=== PATIENT | female | born 1970 | race Caucasian/White ===

== ENCOUNTER 2020-07-12 20:34 | Emergency (ER) | payer OTHER, SELFPAY ==
--- NOTE | ~2020-07-12 | XR_ITS ---
XR ribs RT 2V DATE: 07/12/2020 21:18 INDICATION: Injury with the right rib pain under the breast area TECHNIQUE: 3 views of right ribs COMPARISON: None FINDINGS: No right rib fracture is evident. The right lung is clear. No pleural effusion or pneumotho rax. IMPRESSION: Negative Reviewed, dictated and finalized at location A. IMPRESSION: Negative
--- NOTE | 2020-07-12 20:40 | ED_ITS ---
HPI - Abdominal Pain General Chief Complaint: Abdominal Pain Stated Complaint: abd pain R side Time Seen by Provider: 07/12/20 20:40 Source: patient and RN notes reviewed Mode of arrival: ambulatory Limitations: no limitations Related Data Allergies Allergy/AdvReac Type Severity Reaction Status Date / Time NKDA Allergy Mild Uncoded 10/19/04 06:45 [facility], [facility] Family History Family History (Updated 07/09/14 @ 07:13 by DOCTOR UNKNOWN) Mother Hypertension Other Asthma Cerebrovascular accident Family history of elevated blood lipids Social History Social History Smoking status: Never smoker Alcohol intake: never
[2020-07-12 20:50] VITALS: BP 166/82; PULSE 87; RESP 20; TEMP 36.9; O2SAT 100
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
[2020-07-12 22:00] VITALS: BP 138/66
== END 2020-07-12 22:05 | disposition home or self-care (01) ==
PROVIDERS: Emergency Provider Emergency Medicine; PCP Physician Assistant
DX: S20.211A Contusion of right front wall of thorax, initial encounter (principal); W22.8XXA Striking against or struck by other objects, initial encounter
CPT/HCPCS: 71100; 99283

== ENCOUNTER 2021-12-12 23:12 | Emergency (ER) | payer OTHER, SELFPAY ==
--- NOTE | ~2021-12-12 | XR_ITS ---
EXAMINATION: XR chest 1V portable EXAM DATE: 12/12/2021 23:54 INDICATION: shortness of breath,COUGH,?FEVER,PUI COVID19 TECHNIQUE: Portable AP frontal chest x-ray was obtained. Comparison is made to prior examination from 07/12/2020. FINDINGS: Scattered predominantly linear bilateral opacities. Atelectasis an/or pneumonia. There is n o pneumothorax suspected. There are no pleural effusions. Cardiomediastinal silhouette is normal. IMPRESSION: Scattered bilateral perihilar opacities, atelectasis and/or pneumonia. Reviewed, dictated and finalized at location G. UTER SYSTEMS SECURITY ANALYST IMPRESSION: Scattered bilateral perihilar opacities, atelectasis and/or pneumo sherlyn.
[2021-12-12 23:28] VITALS: BP 119/91; PULSE 104; RESP 21; TEMP 37.5; O2SAT 95
[2021-12-12] MEDS: ACETAMINOPHEN 500 MG TABLET 1000 MG PO (23:55)
[2021-12-12] MEDS: SODIUM CHLORIDE 0.9% IV 1,000 ML 999 ML IV CONT (23:56)
[2021-12-13 00:06] LABS: Base Excess ABG 3.4 mmol/L (0-2); HCO3 ABG 23.9 mmol/L (23-29); Oxygen Content ABG 18.7 %vol (16.0-22.0); Oxyhemoglobin 94.5 % (94-100); PCO2 ABG 25.8 mmHg (35-45); PO2 ABG 63.6 mmHg (80-90); Total Hemoglobin 14.1 g/dL (12.0-18.0); pH ABG 7.59 (7.35-7.45)
[2021-12-13 00:32] LABS: Hematocrit 42.7 % (35.0-49.0); Hemoglobin 14.2 g/dL (12.0-15.0); Mean Corpuscular HGB Conc 33.3 g/dL (32.0-36.0); Mean Corpuscular Hemoglobin 30.9 pg (27.0-31.0); Mean Corpuscular Volume 92.8 fL (78.0-102.0); Mean Platelet Volume 10.2 fl (9.2-11.8); Platelet Count Result 188 K/mm3 (150-420); Red Cell Distribution Width 13.2 % (11.6-14.4); White Blood Count 2.7 K/mm3 (4.8-10.8)
--- NOTE | 2021-12-13 00:34 | ED.SOB ---
HPI - SOB/Dyspnea General Chief Complaint: Shortness of Breath/Dyspnea Stated Complaint: Rule out COVID Time Seen by Provider: 12/13/21 00:35 Source: patient Mode of arrival: ambulatory Limitations: no limitations History of Present Illness HPI Narrative: this is a 51-year-old female that presents with with congestion with low-grade fever with no nausea or vomiting no chest pain no diarrhea constipation, patient is vaccinated for COVID with some mild shortness of breath and vitals are stable with O2 sats 95% on room air. MD elicited complaint: cough Related Data Home Medications Medication Instructions Recorded Confirmed azathioprine 50 mg PO TID 07/12/20 12/12/21 fluoxetine 20 mg PO DAILY 07/12/20 12/12/21 folic acid 1 mg PO DAILY 07/12/20 12/12/21 levothyroxine 50 mcg PO DAILY 07/12/20 12/12/21 mesalamine [Pentasa] 1,000 mg PO QID 07/12/20 12/12/21 amlodipine 5 mg PO DAILY 12/12/21 12/12/21 ezetimibe 10 mg PO DAILY 12/12/21 12/12/21 Allergies Allergy/AdvReac Type Severity Reaction Status Date / Time No Known Allergies Allergy Verified 12/12/21 23:23 Review of Systems Review of Systems: All systems reviewed & are unremarkable except as noted in HPI and below PMFSH Past Medical History Medical History Obesity Ulcerative colitis Surgical History Surgical History Delivery by section x2 Family History Family History Mother Hypertension Other Asthma Cerebrovascular accident Family history of elevated blood lipids Social History Social History Smoking status: Former smoker Alcohol intake: never Substance use: never Exam Const: General: healthy appearing, no acute distress and alert Orientation/consciousness: patient oriented x3 HENMT: Head: normal to inspection Eyes: Conjunctivae: conjunctivae normal Pupils: Equal, round and reactive pupils present Neck: Neck: normal visual inspection, no lymphadenopathy and no meningeal signs Chest: Chest palpation & inspection: normal inspection of the chest Resp: Effort & Inspection: normal respiratory effort Auscultation: clear to auscultation bilaterally Cardio: Rate: regular rate Rhythm: regular rhythm GI: GI Palp: Yes Soft to palpation Percussion: Yes normal to percussion : General: Yes no CVA tenderness Urinary Catheter: Urinary Catheter: patent and draining Back/Spine/Pelvis: Back: no CVA tenderness Skin: General skin exam: normal color Rashes: no rashes Neuro: General: patient oriented x3 and moves all extremities Extrem: General: normal to inspection and no pedal edema Psych: Mental Status: mental status grossly normal Course Course Emergency Course: Labs and x-rays reviewed with patient advised to drink plenty of fluids and, the patient was given IV fluids Tylenol for low-grade fever w Vital Signs Vital signs: Vital Signs Temperature 37.5 C 12/12/21 23:28 Pulse Rate 104 H 12/12/21 23:28 Respiratory Rate 21 H 12/12/21 23:28 Blood Pressure 119/91 H 12/12/21 23:28 Pulse Oximetry 95 12/12/21 23:28 Temperature 37.5 C 12/12/21 23:28 Pulse Rate 104 H 12/12/21 23:28 Respiratory Rate 21 H 12/12/21 23:28 Blood Pressure 119/91 H 12/12/21 23:28 Pulse Oximetry 95 12/12/21 23:28 MDM - SOB/Dyspnea Lab Data Result diagrams: 12/13/21 00:04 12/13/21 00:04 Labs: Lab Results 12/12/21 12/13/21 12/13/21 Range/Units 01:12 00:04 00:04 WBC 2.7 L (4.8-10.8) K/mm3 RBC 4.60 (4.20-5.40) M/mm3 Hgb 14.2 (12.0-15.0) g/dL Hct 42.7 (35.0-49.0) % MCV 92.8 (78.0-102.0) fL MCH 30.9 (27.0-31.0) pg MCHC 33.3 (32.0-36.0) g/dL RDW 13.2 (11.6-14.4) % Plt Count 188 (150-420) K/mm3 MPV 10.2 (9.2
[2021-12-13 01:04] LABS: Device ROOM AIR; Modified Allen's Test Pass; Site Drawn LEFT RADIAL
[2021-12-13 01:07] LABS: Band Neutrophils Percent 0 % (0-6); Basophils Percent Manual 0 % (0-1); Eosinophils Percent Manual 0 % (1-6); Lymphocytes Absolute Manual 0.78 K/mm3 (1.1-4.5); Lymphocytes Percent Manual 29 % (18-44); Monocytes Absolute Manual 0.29 K/mm3 (0.1-0.90); Monocytes Percent Manual 11 % (3-9); Neutrophils Absolute Manual 1.62 K/mm3 (1.7-7.2); Neutrophils Percent Manual 60 % (46-73); Platelet Estimate Adequate (Adequate)
[2021-12-13 01:08] LABS: Influenza A QL RT-PCR Negative (Negative); Influenza B QL RT-PCR Negative (Negative); SARS-CoV-2 RNA PCR Positive (Negative)
[2021-12-13 01:15] LABS: Alanine Aminotransferase 65 U/L (14-59); Albumin Level 3.5 g/dL (3.4-5.0); Alkaline Phosphatase 83 U/L (46-116); Anion Gap 11 mmol/L (8-16); Aspartate Amino Transferase 67 U/L (15-37); Bilirubin,Total 0.4 mg/dL (0.00-1.00); Blood Urea Nitrogen 16 mg/dL (7-18); Calcium 8.6 mg/dL (8.5-10.1); Carbon Dioxide 28 mmol/L (21-32); Chloride 101 mmol/L (98-108); Estimated CRCL calculation 64 ml/min; Estimated Glomerular Filt Rate 58; Glucose 101 mg/dL (70-99); Osmolality Calculated 291 mOsm/kg (285-295); Potassium 3.1 mmol/L (3.5-5.1); Sodium 140 mmol/L (136-145); Total Protein 7.7 g/dL (6.4-8.2)
[2021-12-13 01:21] LABS: Add Urine Microscopic? YES; Appearance Urine Clear (Clear); Bilirubin Urine Negative (Negative); Blood Urine Negative (Negative); Color Urine Yellow (Yellow); Glucose Urine UA Negative (Negative); Ketones Urine Trace (Negative); Leukocyte Esterase Ur Negative (Negative); Nitrate Urine Negative (Negative); Protein Urine 1+ (Negative); Specific Grav Ur 1.025 (1.010-1.020); Urobilinogen Urine 0.2 mg/dL (0.2-1.0)
[2021-12-13 01:30] LABS: Bacteria Urine Trace /hpf; RBC Urine 0-2 /hpf (0-2); Squamous Epithelial Cell Urine Few /hpf (Few); WBC Urine 0-3 /hpf (0-3)
[2021-12-13 02:01] VITALS: BP 120/73; PULSE 91; RESP 18; TEMP 36.9; O2SAT 97
== END 2021-12-13 02:03 | disposition home or self-care (01) ==
PROVIDERS: Emergency Provider Emergency Medicine; PCP Physician Assistant
DX: U07.1 COVID-19 (principal)
CPT/HCPCS: 36415; 36600; 71045; 80053; 81001; 82805; 85025; 87502; 96360; 96361; 99283; C9803; J7030; U0003; U0005

== ENCOUNTER 2022-09-07 19:23 | Emergency (ER) | payer OTHER, SELFPAY ==
--- NOTE | 2022-09-07 19:27 | ED.URI ---
HPI - URI/Sore Throat General Chief Complaint: Upper Respiratory Infection Stated Complaint: chest congestion Time Seen by Provider: 09/07/22 19:27 Source: patient and RN notes reviewed History of Present Illness HPI Narrative: patient is a 52-year-old female who presents to urgent care with complaints of chest congestion, cough and postnasal drainage. Patient states that she gets this every year and normally starts out with runny nose and sore throat. Patient states that she has tested herself twice at home for COVID and both test has been negative. Patient denies any fever, nausea, vomiting, shortness of breath. States that she has been using Mucinex and Tussin DM for her cough. No other acute complaints. No acute distress noted. Patient aware of the plan of care. Some parts of this dictation were generated by voice recognition software and may contain typographical and/or grammatical inaccuracies. Related Data Allergies Allergy/AdvReac Type Severity Reaction Status Date / Time No Known Allergies Allergy Verified 12/12/21 23:23 Review of Systems Review of Systems: CONSTITUTIONAL: Denies fever, chills, or sweats. EYES: Denies visual changes, redness, or discharge. ENT: reported nasal congestion rhinorrhea CARDIOVASCULAR: Denies chest pain, palpitations, or edema. RESPIRATORY: Reports cough without dyspnea reports of cough without wheezing or difficulty breathing GASTROINTESTINAL: Denies abdominal pain, nausea, vomiting, or diarrhea. GENITOURINARY: Denies dysuria or hematuria. SKIN: Denies rash or itching. MUSCULOSKELETAL: Denies back pain, joint pain, or myalgia. NEUROLOGIC: Denies headache, numbness, or weakness. All other systems reviewed are negative, except as documented in HPI. [facility] Past Medical History Medical History Obesity Ulcerative colitis Surgical History Surgical History Delivery by section x2 Family History Family History Mother Hypertension Other Asthma Cerebrovascular accident Family history of elevated blood lipids Social History Social History Smoking status: Former smoker Alcohol intake: never Substance use: never Comments At the time of my signature, I reviewed and agree with the nursing past medical, surgical, social, and family history. There is no relevant family history pertinent to the patient complaint. Exam Narrative: GENERAL: This is a well-nourished, well-developed patient, in no apparent distress. HEAD: normocephalic, atraumatic. EYES: PERRL. Sclera clear/white. Vision is grossly intact. EARS: External ears normal, auditory canals clear and without drainage, TMs normal without perforation. Hearing grossly intact. NOSE: External nose normal with no obvious nasal discharge, nares without redness, no rhinorrhea. THROAT: Mucous membranes moist, posterior pharynx clear. moderate postnasal drainage NECK: Neck supple, non-tender without lymphadenopathy CARDIOVASCULAR: Regular rate and rhythm without murmurs, gallops, or rubs. RESPIRATORY: Clear to auscultation. Breath sounds equal bilaterally. No wheezes, rales, or rhonchi. SKIN: warm, intact with no suspicious lesions or rash, good texture and turgor. NEURO: awake, alert, and oriented to person, place and time. There were no obvious focal neurologic abnormalities. EXTREMITIES: No clubbing, cyanosis, or edema. Course Course Level of Care: Express Care Visit Vital Signs Vital signs: Vital Signs Temperature 99.2 F 09/07/22 19:28 Pulse Rate 86 09/07/22 19:28 Respiratory Rate 20 09/07/22 19:28 Blood Pressure 174/91 H 09/07/22 19:28 Pulse Oximetry 100 09/07/22 19:28 Oxygen Delivery Room Air 09/07/22 19:28 Temperature 99.2 F 09/07/22 19:28 Pulse Rate
[2022-09-07 19:28] VITALS: BP 174/91; PULSE 86; RESP 20; TEMP 37.3; O2SAT 100
== END 2022-09-07 19:46 | disposition home or self-care (01) ==
PROVIDERS: Emergency Provider Nurse Practitioner Family; PCP Physician Assistant
DX: R05.1 Acute cough (principal); Z87.891 Personal history of nicotine dependence; E66.9 Obesity, unspecified; Z68.35 Body mass index [BMI] 35.0-35.9, adult
CPT/HCPCS: 99213; G0463

== ENCOUNTER 2023-02-02 18:10 | Emergency (ER) | payer OTHER, SELFPAY ==
[2023-02-02 18:10] VITALS: BP 192/90; PULSE 98; RESP 20; TEMP 38.8; O2SAT 97
[2023-02-02] MEDS: ACETAMINOPHEN 500 MG TABLET 1000 MG PO (18:29)
--- NOTE | 2023-02-02 18:30 | ED.URI ---
HPI - URI/Sore Throat General Chief Complaint: Upper Respiratory Infection Stated Complaint: sore throat/fever Time Seen by Provider: 02/02/23 18:16 History of Present Illness HPI Narrative: This is a 52-year-old female with reported history of ulcerative colitis, who presents the emergency department complaining of myalgias upper respiratory congestion and fever for the past day. She states she had an exposure to one person with similar symptoms approximately 2 days ago. She states the myalgias are rated 3/10 and do not radiate. Related Data Home Medications Medication Instructions Recorded Confirmed No Home Medications 02/02/23 02/02/23 Allergies Allergy/AdvReac Type Severity Reaction Status Date / Time No Known Allergies Allergy Verified 12/12/21 23:23 Review of Systems Review of Systems: CONSTITUTIONAL: Fevers and chills denies sweats ENT: Rhinorrhea, congestion, sore throat denies otalgia. CARDIOVASCULAR: Denies chest pain, palpitations, or edema. RESPIRATORY: Denies cough or dyspnea. GASTROINTESTINAL: Denies abdominal pain, nausea, vomiting, or diarrhea. GENITOURINARY: Denies dysuria or hematuria. SKIN: Denies rash or itching. MUSCULOSKELETAL: Denies back pain, joint pain, or myalgia. NEUROLOGIC: Denies headache, numbness, dizziness, or weakness. PSYCHIATRIC: Denies anxiety or depression. PMFSH Past Medical History Medical History Obesity Ulcerative colitis Surgical History Surgical History Delivery by section x2 Family History Family History Mother Hypertension Other Asthma Cerebrovascular accident Family history of elevated blood lipids Social History Social History Smoking status: Former smoker Alcohol intake: never Substance use: never Exam Narrative: GENERAL: Well-developed, well-nourished, and in no acute distress. HEAD: Normocephalic, atraumatic. EYES: PERRLA and EOMI. ENT: Nares clear, no rhinorrhea or epistaxis. Mucous membranes moist. Oropharynx with left tonsillar erythema and hypertrophy without exudate or other lesions. Bilateral TMs bulging slightly with opaque fluid. No noted erythema NECK: Supple. Tender, left anterior lymphadenopathy. No noted right lymphadenopathy or masses. No carotid bruits or JVD CHEST: Clear to auscultation. No respiratory distress. No wheezes rales or rhonchi HEART: Regular rate and rhythm. No murmur heard. Normal peripheral pulses. ABDOMEN: Soft, nontender, nondistended, normal active bowel sounds. EXTREMITIES: Normal range of motion. No edema. SKIN: Erythematous, slightly tender and indurated lesion noted in the right inframammary fold. Skin otherwise warm, dry, no rash. NEURO: No focal deficits. Alert and oriented x3. PSYCH: Normal mood and affect. Course Course Emergency Course: 18:30 - Exam is consistent with upper respiratory tract infection. Will test for COVID, influenza and strep. 19:15 - Patient tested positive for Strep. Will treat with penicillin and discharge. Discussed return and emergent precautions including signs/symptoms of respiratory distress. The patient voiced understanding and is comfortable with the plan. All questions answered to her satisfaction. Vital Signs Vital signs: Vital Signs Temperature 101.8 F H 02/02/23 18:10 Pulse Rate 98 02/02/23 18:10 Respiratory Rate 20 02/02/23 18:10 Blood Pressure 192/90 H 02/02/23 18:10 Pulse Oximetry 97 02/02/23 18:10 Oxygen Delivery Room Air 02/02/23 18:10 Temperature 101.8 F H 02/02/23 18:10 Pulse Rate 98 02/02/23 18:10 Respiratory Rate 20 02/02/23 18:10 Blood Pressure 192/90 H 02/02/23 18:10 Pulse Oximetry 97 02/02/23 18:10 Oxygen Delivery Room Air 02/02/23 18:10 MDM - URI/Sore Thr
[2023-02-02 19:03] LABS: Strep Group A RT-PCR DETECTED (Negative)
[2023-02-02 19:09] VITALS: TEMP 38.7
[2023-02-02 19:09] LABS: Influenza A QL RT-PCR Negative (Negative); Influenza B QL RT-PCR Negative (Negative); SARS-CoV-2 RNA PCR Negative (Negative)
--- NOTE | 2023-02-02 19:11 | PC.NURSE ---
REPORT TO EILEEN PEREZ. QUESTIONS ANSWERED.
[2023-02-02] MEDS: PENICILLIN G BENZATHINE 1,200,000 UNITS/2 ML SYRINGE 1200000 UNITS IM (19:28)
[2023-02-02 19:46] VITALS: BP 133/75; PULSE 100; RESP 20; TEMP 37.9; O2SAT 97
== END 2023-02-02 19:52 | disposition home or self-care (01) ==
PROVIDERS: Emergency Provider Preventive Medicine Aerospace Medicine; PCP Physician Assistant
DX: J02.0 Streptococcal pharyngitis (principal); Z87.891 Personal history of nicotine dependence; Z20.822 Contact with and (suspected) exposure to COVID-19
CPT/HCPCS: 87636; 87651; 96372; 99283; J0561

== ENCOUNTER 2023-03-16 12:26 | Emergency (ER) | payer OTHER, SELFPAY ==
[2023-03-16] VITALS (7 sets, daily range): BP systolic 127–177; BP diastolic 61–83; PULSE 57–76; RESP 14–20; TEMP 36.8–36.9; O2SAT 95–99
--- NOTE | ~2023-03-16 | CT_ITS ---
EXAMINATION: CT abdomen pelvis w con DATE: 03/16/2023 13:38 INDICATION: Left lower quadrant abdominal pain. TECHNIQUE: Computed tomography (CT) of the abdomen and pelvis was performed with 100 mL Omnipaque 350 intravenous contrast. Automated exposure control and iterative reconstruction technique were employe d. The dose-length product was 1079.91 mGy-cm. COMPARISON: CT abdomen and pelvis 03/18/2016 FINDINGS: The visualized portions of the lung bases demonstrate mild atelectasis. No pleural effusion . The heart size is normal. No pericardial effusion. The liver, gallbladder, spleen, pancreas, adrena l glands, and kidneys are normal. There is diverticulosis of the colon without evidence of diverticul itis. There are no dilated loops of bowel. The appendix is normal. There are no pathologically enlarg ed lymph nodes. There is no free intraperitoneal fluid. There is mild lumbar spondylosis. IMPRESSION: 1. No etiology for the patient's symptoms. Reviewed, dictated and finalized at location A.
--- NOTE | 2023-03-16 12:44 | ED.GENADULT ---
HPI - General Adult General Chief complaint: GI Bleed Stated complaint: GI problems Time Seen by Provider: 03/16/23 12:29 History of Present Illness HPI narrative: This is a 52-year-old female with past history of ulcerative colitis, off her medications for approximately 2 years, who presents to the emergency department complaining of bright red blood mixed with mucus in her stool for the past week. She denies any known recent sick contacts or travel. There does not appear to be any aggravating or alleviating factors. She notes passage of mucus mixed with blood 5 times a day for the past week. She denies fevers and complains of mild cramping abdominal pain she states she was directed to come to the emergency department by her GI physician for evaluation Related Data Allergies Allergy/AdvReac Type Severity Reaction Status Date / Time No Known Allergies Allergy Verified 03/16/23 12:33 Review of Systems Review of Systems: CONSTITUTIONAL: Denies fever, chills, or sweats. CARDIOVASCULAR: Denies chest pain, palpitations, or edema. RESPIRATORY: Denies cough or dyspnea. GASTROINTESTINAL: Mild abdominal cramping, mucus with bright red blood, occasional purulent rectal discharge denies nausea, vomiting, or diarrhea. GENITOURINARY: Denies dysuria or hematuria. SKIN: Denies rash or itching. NEUROLOGIC: Denies headache, numbness, dizziness, or weakness. PSYCHIATRIC: Denies anxiety or depression. PMFSH Past Medical History Medical History Obesity Ulcerative colitis Surgical History Surgical History Delivery by section x2 Family History Family History Mother Hypertension Other Asthma Cerebrovascular accident Family history of elevated blood lipids Social History Social History Smoking status: Former smoker Alcohol intake: never Substance use: never Exam Narrative: GENERAL: Well-developed, well-nourished, and in no acute distress. HEAD: Normocephalic, atraumatic. EYES: PERRLA and EOMI. no noted conjunctival pallor ENT: Nares clear, no rhinorrhea or epistaxis. Mucous membranes moist. Oropharynx without tonsillar hypertrophy exudate or other lesions. g NECK: Supple. No adenopathy or masses. No carotid bruits or JVD CHEST: Clear to auscultation. No respiratory distress. No wheezes rales or rhonchi HEART: Regular rate and rhythm. No murmur heard. Normal peripheral pulses. ABDOMEN: Soft, nontender, nondistended, normal active bowel sounds. RECTAL: Chaperoned by female hvac service technician Judie. There are no noted external hemorrhoids or active bleeding. There is no mass, obvious blood or purulent discharge on digital rectal examination EXTREMITIES: Normal range of motion. No edema. SKIN: Warm, dry, no rash. NEURO: No focal deficits. Alert and oriented x3. PSYCH: Normal mood and affect. Course Course Emergency Course: 14:00 - CBC unremarkable. Hemoglobin 13.4 with patient's baseline of 14.2. INR 1. Chemistries unremarkable. CRP and ESR not elevated. CT abdomen pelvis shows no acute intra-abdominal process. I suspect the patient's symptoms are related to ulcerative colitis flare as opposed to an infectious process. I attempted to contact the patient's GI physician, Dr. Em without success. Discussed patient with [facility] GI physician, Dr. Perez. With Dr. Perez's consultation, will begin a steroid course and refer for follow-up. I discussed the findings and recommendations with the patient. Discussed return and emergency precautions including signs/symptoms of acute abdomen and bowel obstruction. She voiced understanding and is comfortable with the plan. All questions answered to her satisfaction. Vital Signs Vital signs: Vital Signs Temperature 98
[2023-03-16 13:02] LABS: Occult Blood Negative (Negative)
[2023-03-16 13:02] LABS: Basophils Absolute Auto 0.04 K/mm3 (0.00-0.10); Basophils Percent Auto 0.7 % (0.0-1.0); Eosinophils Absolute Auto 0.29 K/mm3 (0.02-0.50); Eosinophils Percent Auto 5.4 % (1.0-6.0); Hematocrit 41.5 % (35.0-49.0); Hemoglobin 13.4 g/dL (12.0-15.0); Immature Granulocyte Absolute 0.03 K/mm3 (0.00-0.00); Immature Granulocyte Percent A 0.6 % (0.0-0.0); Lymphocytes Absolute Auto 1.93 K/mm3 (1.10-4.50); Lymphocytes Percent Auto 35.7 % (18.0-42.0); Mean Corpuscular HGB Conc 32.3 g/dL (32.0-36.0); Mean Corpuscular Hemoglobin 28.8 pg (27.0-31.0); Mean Corpuscular Volume 89.2 fL (78.0-102.0); Monocytes Absolute Auto 0.34 K/mm3 (0.10-0.90); Monocytes Percent Auto 6.3 % (2.0-11.0); Neutrophils Absolute Auto 2.8 K/mm3 (1.7-7.2); Neutrophils Percent Auto 51.3 % (50.0-70.0); Platelet Count Result 219 K/mm3 (150-420); Red Blood Count 4.65 M/mm3 (4.20-5.40); Red Cell Distribution Width 13.9 % (11.6-14.4); White Blood Count 5.4 K/mm3 (4.8-10.8)
[2023-03-16 13:14] LABS: Prothrombin Time 10.9 Seconds (9.50-12.10)
[2023-03-16 13:16] LABS: Alanine Aminotransferase 24 U/L (14-59); Albumin Level 3.7 g/dL (3.4-5.0); Alkaline Phosphatase 107 U/L (46-116); Anion Gap 8 mmol/L (8-16); Aspartate Amino Transferase 21 U/L (15-37); Bilirubin,Total 0.5 mg/dL (0.00-1.00); Blood Urea Nitrogen 13 mg/dL (7-18); CRP 0.7 mg/dL (0.0-0.9); Calcium 8.8 mg/dL (8.5-10.1); Carbon Dioxide 30 mmol/L (21-32); Chloride 105 mmol/L (98-108); Estimated CRCL calculation 71 ml/min; Estimated Glomerular Filt Rate > 60; Glucose 143 mg/dL (70-99); Lipase 55 U/L (16-77); Osmolality Calculated 298 mOsm/kg (285-295); Potassium 3.6 mmol/L (3.5-5.1); Sodium 143 mmol/L (136-145); Total Protein 8.1 g/dL (6.4-8.2)
--- NOTE | 2023-03-16 13:23 | PC.NURSE ---
Pt to CT via wheelchair.
[2023-03-16 14:06] LABS: Erythrocyte Sedimentation Rate 11 mm/hr (0-20)
== END 2023-03-16 14:33 | disposition home or self-care (01) ==
PROVIDERS: Emergency Provider Preventive Medicine Aerospace Medicine; PCP Physician Assistant
DX: K51.811 Other ulcerative colitis with rectal bleeding (principal); Z87.891 Personal history of nicotine dependence
CPT/HCPCS: 74177; 80053; 82272; 83690; 85025; 85610; 85652; 86140; 99284; Q9967

== ENCOUNTER 2024-07-07 13:29 | Emergency (ER) | payer OTHER, SELFPAY ==
[2024-07-07 13:42] VITALS: BP 177/84; PULSE 65; RESP 20; TEMP 36.8; O2SAT 100
--- NOTE | 2024-07-07 14:17 | ED.DENTAL ---
HPI - Dental/Oral General Chief complaint: Dental/Oral Stated complaint: Toothache Source: patient Mode of arrival: ambulatory History of Present Illness HPI Narrative: 54-year-old female presented for complaint of left lower dental pain and swelling. Onset yesterday. She endorses a broken tooth out the site for long time. Has not taken anything for pain. Unable to get into the dentist. Denies difficulty swallowing or maintaining secretions. MD Complaint: tooth pain Related Data Home Medications Medication Instructions Recorded Confirmed adalimumab 40 mg/0.4 mL mg subcut 07/07/24 subcutaneous pen kit (Humira(CF) Pen) atorvastatin 20 mg tablet mg 07/07/24 Allergies Allergy/AdvReac Type Severity Reaction Status Date / Time No Known Allergies Allergy Verified 03/16/23 12:33 Review of Systems Review of Systems: CONSTITUTIONAL: Denies body aches, fever, chills ENT: Denies rhinorrhea, congestion, sore throat, or otalgia. Reports dental pain CARDIOVASCULAR: Denies chest pain, palpitations RESPIRATORY: Denies cough or dyspnea. SKIN: Denies rash, itching, or wounds. MUSCULOSKELETAL: Denies myalgia. NEUROLOGIC: Denies headache, numbness, tingling, or weakness. [facility] Past Medical History Medical History Obesity Ulcerative colitis Surgical History Surgical History Delivery by section x2 Family History Family History Mother Hypertension Other Asthma Cerebrovascular accident Family history of elevated blood lipids Social History Social History Smoking status: Former smoker Alcohol intake: never Substance use: never Comments At time of signature, I have reviewed and agree with nursing past medical, surgical, social and family history unless otherwise noted. Please see nursing chart for further information. There is no relevant family history pertinent to the presenting complaint Exam Narrative: GENERAL: Appears in pain; no acute distress. HEAD: Normocephalic, atraumatic. EYES: EOMI. No redness or drainage. Conjunctivae normal. ENT: Dental pain location of #19; broken tooth noted, mild gum swelling and tenderness. Mucous membranes pink and moist. TMs normal bilaterally. Throat normal. Uvula midline.no dysphagia, odynophagia, dysphonia, or dyspnea. NECK: Normal AROM. No lymphadenopathy. no induration below mandible, no neck pain. CHEST: No respiratory distress. Clear to auscultation. HEART: Regular rate and rhythm. No murmur appreciated. SKIN: Warm, dry, no rash. Normal skin turgor. NEURO: No focal deficits. Alert and oriented x3. Gait steady. Course Course Emergency Course: Patient is aware of diagnosis, understands and agrees to treatment plan. Anticipatory guidance given. Patient agrees to follow-up as directed and is aware of reasons to seek care at the emergency department. Portions of this record may have been created with voice recognition software Level of Care: Express Care Visit Vital Signs Vital signs: Vital Signs Temperature 98.2 F 07/07/24 13:42 Pulse Rate 65 07/07/24 13:42 Respiratory Rate 20 07/07/24 13:42 Blood Pressure 177/84 H 07/07/24 13:42 Pulse Oximetry 100 07/07/24 13:42 Oxygen Delivery Room Air 07/07/24 13:42 Temperature 98.2 F 07/07/24 13:42 Pulse Rate 65 07/07/24 13:42 Respiratory Rate 20 07/07/24 13:42 Blood Pressure 177/84 H 07/07/24 13:42 Pulse Oximetry 100 07/07/24 13:42 Oxygen Delivery Room Air 07/07/24 13:42 MDM - Dental/Oral MDM Narrative Medical decision making narrative: Patients pain and complaint coupled with physical findings are consistent with dentalgia. There are no focal signs of space occupying lesions that are compromising to the air
== END 2024-07-07 14:28 | disposition home or self-care (01) ==
PROVIDERS: Emergency Provider Nurse Practitioner Family; PCP Physician Assistant
DX: K08.89 Other specified disorders of teeth and supporting structures (principal); Z87.891 Personal history of nicotine dependence; E66.9 Obesity, unspecified; Z68.35 Body mass index [BMI] 35.0-35.9, adult
CPT/HCPCS: 99213; G0463

== ENCOUNTER 2025-10-10 14:10 | Emergency (ER) | payer OTHER, SELFPAY ==
--- NOTE | ~2025-10-10 | XR_ITS ---
EXAMINATION: XR hip RT 2V w AP pelvis, 10/10/2025 14:29 GRINDER GEAR HISTORY: Fall, Rt. hip pain COMPARISON: No comparisons available. Findings: No acute fracture or malalignment. No significant degenerative changes. Soft tissues unremarkable. Impression: No acute fracture or malalignment. Reviewed, dictated and finalized at location P. DER GEAR Impression: No acute fracture or malalignment.
--- NOTE | ~2025-10-10 | XR_ITS ---
EXAMINATION: XR elbow RT min 3V, 10/10/2025 14:29 POLICE RESERVES COMMANDER HISTORY: Fall, Rt. elbow pain/ swelling COMPARISON: No comparisons available. Findings: No acute fracture or malalignment. No significant degenerative changes. Soft tissues unremarkable. Impression: No acute fracture or malalignment. Reviewed, dictated and finalized at location P. CE RESERVES COMMANDER Impression: No acute fracture or malalignment.
[2025-10-10 14:10] VITALS: BP 194/96; PULSE 64; RESP 20; TEMP 36.4; O2SAT 100
--- OUTSIDE RECORDS SUMMARY | 2025-10-10 14:13 | XMS_ITS | Clinical Summary ---
Author Organization [facility] Address [address] [address] Care Team Providers Care Money Order Clerk Name Role Phone Unavailable Primary Care Provider Unavailabl e Source Comments [facility],non-owned Affiliates and Associated Physician Practices is amultiple site organization consisting of ambulatory clinics and hospital sitesin [place], [place], [place] and [place]. This disclosure is being madepursuant to the Care Everywhere program and may not contain all information available regarding this patient. Last updated 18.[facility] [place]uin Social History Tobacco Use Types Packs/Day Years Used Date Smoking Tobacco: Never Assessed Comments Unknown Sex and Gender Information Value Date Recorded Sex Assigned at Not on file Legal Sex Female 7:51 AM CDT Gender Identity Not on file Sexual Orientation Not on file Plan of Treatment Health Maintenance Due Date Last Done Comments COLOGUARD (AGES 45-75) - COL ON CA SCREENING 1970 COLON MONITORING 1970 COLONOSCOPY - COLON CA SCREENING 1970 CT COLONOGRAPHY - COLON CA SCREENING 1970 Colorectal Cancer Screening 1970 FIT - COLON CA SCREENING 1970 FLEX SIG - COLON CA SCREENING 1970 LIPID TESTING 1970 MAMMOGRAM 1970 HIV SCREENING 1985 HEPATITIS C SCREENING 03/19/1988 DTAP/TDAP/TD VACCINES (1 - Tdap) 1989 HEPATITIS B VACCINE (1 of 3 - 19+ 3-dose series) 1989 Cervical Cancer Screening 1991 PAP SMEAR 1991 PAP with HPV 2000 PNEUMOCOCCAL VACCINE 50+ (1 of 1 - PCV) 2020 ZOSTER VACCINE (1 of 2) 2020 DEPRESSION SCREENING 11/12/2024 COVID-19 VACCINE (1 - 2024-2 6 season) 2025 INFLUENZA VACCINE (#1) 2025 HIB VACCINE Aged Out No longer eligi ble based on patient's age to complete this topic HPV VACCINE Aged Out No longer eligi ble based on patient's age to complete this topic MENINGOCOCCAL (Group B) VACC INE SHARED DECISION-MAKING Aged Out No longer eligibl e based on patient's age to complete this topic MENINGOCOCCAL GROUPS A/C/Y/W VACCINE Aged Out No longer eligible b ased on patient's age to complete this topic Insurance [facility]
--- OUTSIDE RECORDS SUMMARY | 2025-10-10 14:13 | XMS_ITS ---
Author Organization Unknown Address [address] [place] [phone] Phone Care Team Providers Care Creative Writing English Professor Name Role Phone TAYLOR HAYES Attending Unavailable SHERLEY MUNOZ Primary Unavailable Immunization Immunization Date Status Additional Notes Code Code System Hep B, adult 06/14/2023 Completed 43 CVX Hep B, adult 07/26/2023 Completed 43 CVX Hep B, adult 01/23/2024 Completed 43 CVX Tdap 08/30/2020 Completed 115 CVX Influenza, split virus, trivalent, PF 12/16/2024 Completed 140 CVX Influenza, split virus, quadrivalent, preservative 09/19/2018 Completed 158 C VX Pneumococcal conjugate PCV20 , polysaccharide [id number] conjugate, adjuvant, PF 12/16/2024 Completed 216 CVX Results ANKLE 3V RIGHT - Completed: 01/04/2025 17:55 LOINC: \TM00\\12PI\\DRAo\\BM09\ \MRHo\ [address] [address] ---------NAME--------- NUMBER SEX AGE ADMIT DISC. XRAY# F/C TYPE GIOVANNI HERNANDEZ [id number] F [id number] 01/04/25 44292 XB3 E.R. DATE OF : 1970 M/R# [id number] PH#: [phone] ED-52 \MRHx\ LOCATION: TRANSCRIBED: 01/04/25 18:07 ANKLE 3V RIGHT [id number] COMPLETED:01/04/25 17:55 KSE [id number] Trauma PHYSICIAN: CARIDAD R A D I O L O G Y R E P O R T EXAM: ANKLE 3V RIGHT CLINICAL HISTORY: Trauma COMPARISON: None TECHNIQUE: ANKLE 3V RIGHT Findings/Impression: 3 views of the right ankle. There is no evidence of an acute fracture, dislocation, blastic, or lytic lesions. No radiopaque foreign bodies. Large plantar calcaneal enthesophyte. Small joint effusion and mild soft tissue edema. Y HAND \ITLo\ \UNDo\ \UNDx\ \ITLx\ Reviewed and Electronically Signed by: Echo Lindsey DO Signed Date: 01/04/25 18:07 Social History Type Status Start Date End Date Code Code Syst em Smoking History Never smoker (Never Smoked) [id number] SNOMED CT Sex Female Hospital Discharge Instructions Should you have any questions prior to discharge, please contact a member of your healthcare team. If you have left the hospital and have any questions, please contact your primary care physician. Reason For Referral No Data Found Plan of Treatment No Data Found Encounters Encounter Diagnosis Start Date Code Code Sys tem Sprain of unspecified ligame nt of right ankle, initial encounter 01/04/2025 SNOMED-CT Personal Care Team Section Imaging Narrative Notes [facility] 01/04/2025 18:[address] [address] ---------NAME--------- NUMBER SEX AGE ADMIT DISC. XRAY# F/C TYPE GIOVANNI HERNANDEZ [id number] F [id number] 01/04/25 22140 XB3 E.R. DATE OF : 1970 M/R# [id number] #: [phone] ED-52 LOCATION: TRANSCRIBED: 01/04/25 18:07 ANKLE 3V RIGHT [id number] COMPLETED:01/04/25 17:55 KSE [id number] Trauma PHYSICIAN: CARIDAD RADIOLOGY REPORT EXAM: ANKLE 3V RIGHT CLINICAL HISTORY: Trauma COMPARISON: None TECHNIQUE: ANKLE 3V RIGHT Findings/Impression: 3 views of the right ankle. There is no evidence of an acute fracture, dislocation, blastic, or lytic lesions. No radiopaque foreign bodies. Large plantar calcaneal enthesophyte. Small joint effusion and mild soft tissue edema. Y HAND Reviewed and Electronically Signed by: Echo Lindsey DO Signed Date: 01/04/25 18:07
--- OUTSIDE RECORDS SUMMARY | 2025-10-10 14:13 | XMS_ITS | Clinical Summary ---
Author Organization [facility] Address [address] [facility], [facility] [[email or web address] [address] [place] [address] Phone Care Team Providers Care Education Program Coordinator Name Role Phone Gian Shafer Primary Care Provider [phone] Cris Em MD Unavailable [phone] Allergies No known active allergies Medications Bacillus Coagulans-Inulin (PROBIOTIC FORMULA PO) Take 1 Tab by mouth every morning. Active levothyroxine (SYNTHROID) 50 MCG Tablet Take 50 mcg by mouth nightly. Active Methylcellulose, Laxative, (FIBER THERAPY PO) Take 4 Tabs by mouth every morning. Active LORazepam (ATIVAN) 0.5 MG Tablet Take 0.5 mg by mouth every 6 hours as needed for Anxiety. Active FLUoxetine (PROzac) 20 MG Capsule Take 20 mg by mouth every morning. Active Calcium-Magnesiu m-Zinc 500-250-12.5 MG Tablet Take by mouth every morning. Active folic acid (FOLVITE) 1 MG Tablet TAKE 1 TABLET BY MOUTH EVERY DAY 90 Tablet 3 1 Active Additional Information Patient not taking.Reported on 07/26/2022 VENLAFAXINE HCL PO Take by mouth. Activ e AMLODIPINE BENZOATE PO Take by mouth. Act elizabet meclizine (ANTIVERT) 25 MG Tablet Take 1 Tablet by mouth 3 times daily as needed for Dizziness. 30 Tablet 1 Active Additional Information Patient not taking.Reported on 07/26/2022 Mesalamine (Pentasa) 500 MG Capsule CR Take 2 Capsules by mouth 4 times daily. Do not crush. 720 Capsule 3 1 Active Additional Information Patient not taking.Reported on 07/26/2022 ezetimibe (ZETIA) 10 MG Tablet ezetimibe 10 mg tablet TAKE 1 TABLET BY MOUTH EVERY DAY, NEEDS APPT BEFORE NEXT REFILL Active azaTHIOprine (IMURAN) 50 MG Tablet TAKE 4 TABLETS BY MOUTH EVERY DAY 120 Tablet 2 Active Additional Information Patient not taking.Reported on 07/26/2022 METHYLPREDNISOLO NE PO daily. Tapering off- started at 40mg Active naproxen (NAPROSYN) 500 MG Tablet Take 1 Tablet by mouth 2 times daily as needed for Mild or more severe pain. 20 Tablet 3 Active Additional Information Patient not taking.Reported on 06/24/2024 Adalimumab (Humira, 2 Pen,) 40 MG/0.4ML Pen-injector KitIndications:U lcerative pancolitis without complication 0.4 mL by Subcutaneous route every 14 days. 2 Each 5 4 Active ATORVASTATIN CALCIUM PO Take 20 mg by mouth daily. 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 Encounters Date Type Department Care Team Description 10/07/2025 Telephone [facility] - Gastroenterology [facility] [address] [place] [address] Myles Fernandez MD Request for Records from Last 3 Months Immunizations Immunization Administration Dates Next Due Hepatitis B Vaccine 01/23/2024,07/26/2023,2022 Influenza, Injectable, Quadrivalent 09/19/2018 TDAP Vaccine 08/30/2020 Family History Medical History Relation Name Comments Hypertension Father Aneurysm Maternal Grandfather brain Aneurysm Maternal Grandmother brain Chronic Obstructive Pulmonary Disease Mother Hypertension Mother Cancer Paternal Aunt Breast/cervica l Stroke Paternal Grandmother Relation Name Status Comments Father Alive Maternal Grandfather Maternal Grandmother Mother Alive Paternal Aunt Paternal Grandmother Social History Tobacco Use Types Packs/Day Years Used Date Smoking Tobacco: Former Cigarettes 1 23 0 02/22/1985 - 02/23/2008 Smokeless Tobacco: Never Tobacco Cessation:Counseling Given: Not Answered Alcohol Use Standard Drinks/Week Comments No 0 (1 standard drink = 0.6 oz pur e alcohol) Sexually Active Control Partners Comments Never Comments No Sex and Gender Information Value Date Recorded Sex Assigned at Not on file Legal Sex Female 10:27 PM CDT Gender Identity Not on file Sexual Orientation Not on file 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 Not on file Not on file Last Filed Vital Signs Vital Sign Reading Time Taken Comments Blood Pressure 122/88 10/07/2024 12:59 PM HEALTH COORDINATOR Pulse 72 10/07/2024 12:59 PM HEALTH COORDINATOR Temperature 36.4 C (97.5 F) 10/07/2024 12:59 PM HEALTH COORDINATOR Respiratory Rate 16 10/07/2024 12:59 PM HEALTH COORDINATOR Oxygen Saturation 97% 10/07/2024 12:59 PM HEALTH COORDINATOR Inhaled Oxygen Concentration - - Weight 92.5 kg (204 lb) 10/07/2024 12:59 PM HEALTH COORDINATOR Height 161.3 cm (5' 3.5) 10/07/2024 12:59 PM CS T Body Mass Index 35.57 10/07/2024 12:59 PM HEALTH COORDINATOR Plan of Treatment Upcoming Encounters Date Type Department Care Team (Late st Contact Info) Description 10/12/2025 10:30 AM HEALTH COORDINATOR Office Visit [facility] - [facility]iology - [place] [address] [place] [address] Tati Stein, PREPARATION PLANT REPAIRER, DIFFUSION FURNACE OPERATOR [address] [place] [address] Health Maintenance Due Date Last Done Comments SARS-COV-2 Immunization (#1) 1975 Zoster Immunization (1 of 2) 1989 Pap Smear 1991 Cervical Cancer Screening (CCS) 2000 HPV/Cotest 2000 Cologuard 2015 Immunochemical Fecal Occult Blood 2015 Pneumococcal Immunization (50+ years) (1 of 1 - PCV) 2020 Respiratory Syncytial Virus (RSV) Immunization (Adult) (1 - Risk 50-74 years 1-dose series) 2020 Influenza Immunization (#1) 2025 09/19/2018 Colonoscopy 08/01/2025 08/01/2024, 07/0 03/2023, 05/16/2023, Additional history exists Colorectal Cancer Screening 08/01/2025 Mammogram 09/24/2025 09/24/2024, 08/12, 08/27/2023, Additional history exists Td Immunization Every 10 Years (Adults With 1 Tdap) 08/30/2030 08/30/2020 Hepatitis C Virus (HCV) Screening Completed 05/08/2018 DTaP/Tdap/Td Immunization Discontinued 08/30/2020 Lung Cancer Screening Discontinued 05/11/2023 Hepatitis B Immunization Completed 024, 07/26/2023, 06/14/2023 Human Papillomavirus (HPV) Immunization Aged Out No longer eligible based on patient's age to complete this topic Meningococcal Immunization (ACWY) Aged Out No longer eligible based on patient's age to complete this topic Rotavirus Immunization Aged Out No lo nger eligible based on patient's age to complete this topic Procedures Procedure Name Priority Date/Time Associated Diagnosis Comments ANGIE SCREENING BILATERAL DIGITAL W CAD W SANTA Routine 08/27/2023 10:03 AM CDT Encounter for screening mammogram for malignant neoplasm of breast GI IMAGING - COLONOSCOPY Routine 05/16/2023 9:[address] CHEST SCREENING WO Routine 05/11/2023 2:01 PM CDT Encounter for screening for malignant neoplasm of respiratory organs Personal history of nicotine dependence HEPATITIS PANEL ACUTE (AHP) Routine 05/08/2018 12:08 PM CDT from Last 3 Months or Most Recently Relevant to Health Maintenance Results * ANGIE SCREENING BILATERAL DIGITAL W CAD W SANTA (08/27/2023 10:03 AM CDT) Anatomical Region Laterality Modality breast Bilateral Mammography 08/27/2023 9:15 AM CDT Narrative 08/28/2023 10:43 AM CDT - ANGIE SCREENING BILATERAL DIGITAL W CAD W SANTA BILATERAL DIGITAL SCREENING MAMMOGRAM 3D/2D WITH CAD WITH MEDIOLATERAL OBLIQUE CRANIOCAUDAL: 08/27/2023 The study was acquired using digital technology and interpreted from soft copy. Current study was also evaluated with ICAD version 7.2. 2D digital mammographic views, as well as 3D digital tomosynthesis were performed in the CC and MLO projections. CLINICAL: Routine screening. Patient has no complaints. No personal history of cancer. No family history of breast cancer. COMPARISONS: Comparison is made to exams dated: 08/11/2022, 09/14/2022, 05/20/2021, [facility] BREAST TISSUE:There are scattered fibroglandular densities in both breasts. FINDINGS: No significant masses, calcifications, or other findings are seen in either breast. There has been no significant interval change. IMPRESSION: BI-RAD 1 NEGATIVE There is no mammographic evidence of malignancy. A 1 year screening mammogram is recommended. A letter will be sent to the patient with these results. The patient will be entered into a reminder system with a target due date of 1 year for her next screening exam. Electronically signed by: Naima lopez/reyes:08/27/2023 17:57:05 Leak Inspector(s): RT Jorje(R)(M), [facility] letter sent: Normal Exam Reading location: [facility] BI-RADS: 1 Negative Procedure Note Naima Varela MD - 08/28/2023 - ANGIE SCREENING BILATERAL DIGITAL W CAD W SANTA BILATERAL DIGITAL SCREENING MAMMOGRAM 3D/2D WITH CAD WITH MEDIOLATERAL OBLIQUE CRANIOCAUDAL: 08/27/2023 The study was acquired using digital technology and interpreted from soft copy. Current study was also evaluated with ICAD version 7.2. 2D digital mammographic views, as well as 3D digital tomosynthesis were performed in the CC and MLO projections. CLINICAL: Routine screening. Patient has no complaints. No personal history of cancer. No family history of breast cancer. COMPARISONS: Comparison is made to exams dated: 08/11/2022, 09/14/2022, 05/20/2021, and 04/26/2020 [facility]. BREAST TISSUE:There are scattered fibroglandular densities in both breasts. FINDINGS: No significant masses, calcifications, or other findings are seen in either breast. There has been no significant interval change. IMPRESSION: BI-RAD 1 NEGATIVE There is no mammographic evidence of malignancy. A 1 year screening mammogram is recommended. A letter will be sent to the patient with these results. The patient will be entered into a reminder system with a target due date of 1 year for her next screening exam. Electronically signed by: Naima lopez/reyes:08/27/2023 17:57:05 Leak Inspector(s): RT Jorje(R)(M), [facility] letter sent: Normal Exam Reading location: [facility] BI-RADS: 1 Negative Julia Meier MD IMG MAMMO ORDERABLES Final Re sult * GI IMAGING - COLONOSCOPY (05/16/2023 9:44 AM CDT) Cris Em MD IMG DIAGNOSTIC ORDERABLES Final Result * CT CHEST SCREENING WO (05/11/2023 2:01 PM CDT) Anatomical Region Laterality Modality Chest N/A Computed Tomogra phy 05/14/2023 6:42 AM CDT Impressions 05/14/2023 6:45 AM CDT IMPRESSION: Scattered pulmonary nodules with the largest measuring up to 0.5 cm. Minimal emphysematous changes of lungs with scattered mild subsegmental atelectasis and scarring. Lung-RADS category 2: Benign appearance or behavior. Recommendation: Low dose Screening CT of chest in 12 months. Narrative 05/14/2023 6:45 AM CDT EXAM DESCRIPTION: CT CHEST SCREENING WO REASON FOR STUDY: Screening CT of the chest in a former smoker with a 20 pack year smoking history. Additional history: None. TECHNIQUE: Low dose CT scan of the chest was performed without intravenous contrast using helical scanning technique. The exam extends from the lung apices through the lung bases. Automatic exposure control was used as a dose optimization technique. NOTE: This study was performed for the specific purposes of lung cancer screening and is not an alternative to diagnostic chest CT. RADIATION DOSE: CT dose index volume (CTDIvol) = 3.62 mGy COMPARISON: None FINDINGS: SMOKING RELATED LUNG DISEASE: There are minimal emphysematous changes of lungs with scattered mild subsegmental atelectasis and scarring. There is no definite evidence of a pneumothorax. The central airways are grossly patent. There is no definite evidence of focal consolidation or pleural effusion. LUNG NODULES: There are scattered pulmonary nodules noted. For example, there is a fissural nodule along the anterior aspect of the right minor fissure measuring 0.3 cm (axial image 135). There is a 0.4 cm fissural nodule along the right minor fissure (axial image 106). There are a couple of adjacent fissural nodules along the right major fissure with the largest measuring 0.7 x 0.3 cm (mean diameter 0.5 cm, axial image 106). There are couple of tiny fissural nodules along the left major fissure with the largest measuring 0.2 cm (axial image 104). CORONARY ARTERY CALCIFICATION: Present. OTHER: The heart size is upper limits of normal. There is a small amount of pericardial fluid noted, which may be physiologic. There are minimal to mild atherosclerotic changes thoracic aorta. There are minimal atherosclerotic changes of coronary vessels. There is no definite unenhanced CT evidence of mediastinal, hilar, or axillary lymphadenopathy. There are scattered subcentimeter mediastinal lymph nodes noted with the largest measuring 0.6 cm in the paratracheal region (axial image 74). There is a small hiatal hernia. The bilateral adrenal glands are grossly symmetrical and unremarkable. There is a minimal S shaped scoliotic curvature of the spine with degenerative changes. THIS IS AN ELECTRONICALLY VERIFIED FINAL REPORT 05/14/2023 6:42 AM - Electronically signed by Estuardo Lennon D.O. PS: PS Report ID: [id number] Reading Location: [id number] Procedure Note Estuardo Lennon DO - 05/14/2023 EXAM DESCRIPTION: CT CHEST SCREENING WO REASON FOR STUDY: Screening CT of the chest in a former smoker with a 20 pack year smoking history. Additional history: None. TECHNIQUE: Low dose CT scan of the chest was performed without intravenous contrast using helical scanning technique. The exam extends from the lung apices through the lung bases. Automatic exposure control was used as a dose optimization technique. NOTE: This study was performed for the specific purposes of lung cancer screening and is not an alternative to diagnostic chest CT. RADIATION DOSE: CT dose index volume (CTDIvol) = 3.62 mGy COMPARISON: None FINDINGS: SMOKING RELATED LUNG DISEASE: There are minimal emphysematous changes of lungs with scattered mild subsegmental atelectasis and scarring. There is no definite evidence of a pneumothorax. The central airways are grossly patent. There is no definite evidence of focal consolidation or pleural effusion. LUNG NODULES: There are scattered pulmonary nodules noted. For example, there is a fissural nodule along the anterior aspect of the right minor fissure measuring 0.3 cm (axial image 135). There is a 0.4 cm fissural nodule along the right minor fissure (axial image 106). There are a couple of adjacent fissural nodules along the right major fissure with the largest measuring 0.7 x 0.3 cm (mean diameter 0.5 cm, axial image 106). There are couple of tiny fissural nodules along the left major fissure with the largest measuring 0.2 cm (axial image 104). CORONARY ARTERY CALCIFICATION: Present. OTHER: The heart size is upper limits of normal. There is a small amount of pericardial fluid noted, which may be physiologic. There are minimal to mild atherosclerotic changes thoracic aorta. There are minimal atherosclerotic changes of coronary vessels. There is no definite unenhanced CT evidence of mediastinal, hilar, or axillary lymphadenopathy. There are scattered subcentimeter mediastinal lymph nodes noted with the largest measuring 0.6 cm in the paratracheal region (axial image 74). There is a small hiatal hernia. The bilateral adrenal glands are grossly symmetrical and unremarkable. There is a minimal S shaped scoliotic curvature of the spine with degenerative changes. THIS IS AN ELECTRONICALLY VERIFIED FINAL REPORT 05/14/2023 6:42 AM - Electronically signed by Estuardo Lennon D.O. PS: ITNO Report ID: [id number] Reading Location: [id number] IMPRESSION: Scattered pulmonary nodules with the largest measuring up to 0.5 cm. Minimal emphysematous changes of lungs with scattered mild subsegmental atelectasis and scarring. Lung-RADS category 2: Benign appearance or behavior. Recommendation: Low dose Screening CT of chest in 12 months. Julia Meier MD IMG CT ORDERABLES Final Resul t * Hepatitis Panel Acute (AHP) (05/08/2018 12:08 PM CDT) HEPATITIS A IGM ANTIBODY NON DETECTED NON DETECTED 05/09/2018 12:54 AM CDT [facility] Comment: IGM Antibodies to HAV not detected. Does not exclude early acute or recovered HAV infection. HEP B CORE AB (IGM) NON DETECTED NON DETECTED 05/09/2018 12:54 AM CDT [facility] Comment: IGM anti-HBC not detected. Does not exclude the possibility of exposure to or infection with HBV. HEPATITIS B SURFACE ANTIGEN NON DETECTED NON DETECTED 05/09/2018 12:54 AM CDT [facility] Comment: A nonreactive test result does not exclude the possibility of exposure to or infection with Hepatitis B virus. A nonreactive test result in individuals with prior exposure to hepatitis B may be due to antigen levels below the detection limit of this assay or lack of antigen reactivity to the antibodies in this assay. hepatitis C antibody 0.12 <1 S/CO 05/09/2018 12:54 AM T [facility] Comment: Signal/Cutoff ratio < 0.79 is Nondetected Signal/Cutoff ratio 0.80-0.99 is Grayzone Signal/Cutoff ratio > 0.99 is Detected Supplemental assays are recommended if signal/cutoff ratio is >/=1.00. Signal/cutoff ratio result >/= 5.00 is 97% predictive of positivity for recombinant immunoblot assay (RIBA) and will be reported to the [place] Department of Public Health as required. Blood specimen (specimen) Venipuncture / Unknown 05/08/2018 12:08 PM CDT 05/08/2018 12:17 PM CDT Sonu Gutierrez DO HEMATOLOGY ORDERABLES Final Res ult [facility] [address] [place] [address], from Last 3 Months or Most Recently Relevant to Health Maintenance Insurance MEDICAID [place] Care Teams Education Program Coordinator Relationship Specialty Start Date End Date Gian Shafer, [facility] [address] [address] PCP - General Physician Home Health Care Social Worker 07/14/16 Cris Em MD [address] [place] [address] Consulting Physician Gastroenterology 04/12/23
--- OUTSIDE RECORDS SUMMARY | 2025-10-10 14:13 | XMS_ITS | Encounter Summary ---
Author Organization [facility] Address [address] [place] [address] Phone Care Team Providers Care Exhibition Specialist Name Role Phone Milton Ojeda MD Unavailable Unavaila Sonu Wolff DO Unavailable [phone] Gian Shafer Primary Care Provider [phone] Cris Em MD Unavailable [phone] Katherine Bradford APRN, CNP Unavailable [phone] Encounter Details Date Type Department Care Team (Late st Contact Info) Description 08/12/2022 [facility] Admitting [address] [place] [id number] Gian Shafer, PAC [address] [place] [address] Social History Tobacco Use Types Packs/Day Years Used Date Smoking Tobacco: Former Cigarettes 1 23 0 02/22/1985 - 02/23/2008 Smokeless Tobacco: Never Alcohol Use Standard Drinks/Week Comments No 0 (1 standard drink = 0.6 oz pur e alcohol) Sexually Active Control Partners Comments Never Comments No Sex and Gender Information Value Date Recorded Sex Assigned at Not on file Legal Sex Female 10:27 PM CDT Gender Identity Not on file Sexual Orientation Not on file 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 No / Unsure 08/11/2022 10:25 AM CDT documented as of this encounter Plan of Treatment Upcoming Encounters Date Type Department Care Team (Late st Contact Info) Description 10/12/2025 10:30 AM MARKETING REPRESENTATIVE Office Visit [facility] - Cardiology [facility] [address] [place] [phone] Tati Stein APRN, TECHNOLOGY SALES SPECIALIST [address] [place] [address] documented as of this encounter Visit Diagnoses Not on filedocumented in this encounter Additional Health Concerns Infection Onset Date Last Indicated Resolved Time C. difficile Rule-Out 04/12/2023 04/17/20232022 2:36 PM CDT documented as of this encounter Care Teams Exhibition Specialist Relationship Specialty Start Date End Date Gian Shafer PAC [address] [place] [address] PCP - General Physician Qc Scientist 07/14/16 Milton Ojeda MD Consulting Physician Otolaryngology 12/08/15 10/19/24 Sonu Gutierrez DO Consulting Physician Gastroenterology 12/08/15 10/19/24 Cris Em MD [address] [place] [address] Consulting Physician Gastroenterology 04/12/23 Katherine Bradford APRN, TECHNOLOGY SALES SPECIALIST [address] [facility], [address] [place] [address] Nurse Practitioner Cardiology 06/17/24 06/04/25 documented as of this encounter
--- OUTSIDE RECORDS SUMMARY | 2025-10-10 14:13 | XMS_ITS | Encounter Summary ---
Author Organization [facility] Address [address] [place] [address] Phone Care Team Providers Care Abrasive Band Winder Name Role Phone Milton Ojeda MD Unavailable Unavaila Sonu Wolff DO Unavailable [phone] Gian Shafer Primary Care Provider Cris Em MD Unavailable [phone] Katherine Bradford APRN, CNP Unavailable [phone] Reason for Visit * Reason Comments Medication Refill Encounter Details Date Type Department Care Team (Late st Contact Info) Description 05/16/2022 [facility]ill [facility] [place] [address] [place] [address] Meron Webb So, PAC [address] [place] [address] Medication Refill Social History Tobacco Use Types Packs/Day Years [...] 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 No / Unsure 05/03/2022 6:40 PM CDT documented as of this encounter Miscellaneous Notes * Telephone Encounter - Chayo Mitchell RN - 05/16/2022 11:19 AM CDT Pharmacy requesting refill of: Requested Prescriptions Pending Prescriptions Disp Refills ??? azaTHIOprine (IMURAN) 50 MG Tablet [Pharmacy Med Name: AZATHIOPRINE 50 MG TABLET] 120 Tablet 0 Sig: TAKE 4 TABLETS BY MOUTH EVERY DAY Last fill: 04/11/2022 Patients last OV with GI: 05/04/2022 Next Office Visit with GI: None scheduled. Patient is scheduled for colonoscopy on 08/01/2022. Medication cannot be delegated. Azathioprine order pended, please review. documented in this encounter Plan of Treatment Upcoming Encounters Date Type Department Care Team (Late st Contact Info) Description 10/12/2025 10:30 AM EMPLOYEE HEALTH RN Office Visit [facility] - Cardiology [facility] [address] [place] [address] Tati Stein APRN, LENS CEMENTER [address] [place] [address] documented as of this encounter Visit Diagnoses Not on filedocumented in this encounter Additional Health Concerns Infection Onset Date Last Indicated Resolved Time C. difficile Rule-Out 04/12/2023 04/17/20232022 2:36 PM CDT documented as of this encounter Care Teams Abrasive Band Winder Relationship Specialty Start Date End Date Gian Shafer PAC [address] [place] [address] PCP - General Physician First Crusher 07/14/16 Milton Ojeda MD Consulting Physician Otolaryngology 12/08/15 10/19/24 Sonu Gutierrez DO Consulting Physician Gastroenterology 12/08/15 10/19/24 Cris Em MD [address] [place] [address] Consulting Physician Gastroenterology 04/12/23 Katherine Bradford APRN, LENS CEMENTER [address]2 [facility] [address] [place] [address] Nurse Practitioner Cardiology 06/17/24 06/04/25 documented as of this encounter
--- OUTSIDE RECORDS SUMMARY | 2025-10-10 14:13 | XMS_ITS | Clinical Summary ---
Author Organization [facility] Medical Office Building B Address [address] [place] [address] Care Team Providers Care Newspaper Delivery Counselor Name Role Phone Gian Shafer Primary Care Provider [phone] Allergies No known active allergies Medications atorvastatin (LIPITOR) 20 mg tablet Take 1 tablet every day by oral route for 90 days. 05/20/2024 Active adalimumab (HUMIRA, CF, SYRINGE) 40 mg/0.4 mL syringe kitIndications:C rohn's Disease Inject 0.4 mL (40 mg total) under the skin every 14 (fourteen) days 2 each 12 09/03/2024 Active Active Problems Problem Noted Date Diagnosed Date Other constipation 2025 High risk medications (not anticoagulants) long- term use 09/23/2024 Personal history of colonic polyps 06/20/2024 Encounter for screening colonoscopy 06/20/2024 Crohn's disease of colon without complication Assessment & Plan (09/23/2024 10:35 PM SAFETY ADMINISTRATOR): Since last visit underwent colonoscopy 07/2024 that showed normal TI, mildly erythematous mucosa in the colon with biopsy finding showing quiescent colitis negative for dysplasia. Hemorrhoids and diverticulosis Labs from 06/2024 showed negative TB, hepatitis-B immune, negative ESR, CRP, fecal calprotectin. Patient doing well on Humira 40 mg every other week with no issues Plan Continue Humira 40 mg every other week Repeat TB screening 07/01/2025 Health Maintenance A. Bone health: 1. DEXA scan normal in 2018, will repeat 2. Vitamin D 25-OH level with dates: unknown, will check today B. Cancer screenin. Last colonoscopy: 07/2024 with normal TI, mildly erythematous mucosa in the colon with biopsy finding showing quiescent colitis negative for dysplasia. 2. Repeat colonoscopy in 3 years 3. Annual skin exam by crop roller for both melena and nonmelanoma skin cancers. Discussed today 4. Cervical cancer screening with annual PAP smears for life if female. Discussed today C. Immunization: Patient has never received flu, pneumonia, COVID vaccinations and was very hesitant about them. She was strongly encouraged to get those done with PCP. She is Immune for hepatitis B Assessment & Plan (06/20/2024 10:25 AM CDT): IBD History Hx of chronic diarrhea and was diagnosed around 04/2018 after presented with bloody stools and worsening diarrhea for 6 months where colonoscopy that time showed diffuse inflammation from rectum to mid sigmoid c/w ulcerative proctitis with disordered crypts and moderate acute and chronic inflammation, was unable to do mesalamine enemas due to insurance. She was started on sulfasalazine 1000 mg BID. She did okay until 11/2018 with recurrence of bloody stools and diarrhea. Flex sig that time showed active disease in the left colon and rectum and she was placed on Pentasa 4 g daily. Colonoscopy 05/2019 showed nomal TI, inflammatory appearing polyp in the distal ascending colon, mild patchy nonspecific inflammation from sigmoid to transverse colon. I could not find any biopsy results. Imuran 100 mg daily was added. She actually stopped all medications to 2019 after she developed COVID and had been doing well. Colonoscopy 03/2020 showed normal TI, mild patchy erythema from proximal transverse to proximal ascending colon. Again no biopsy results were found. Follow up colonoscopy 07/2022 showed normal TI and colon. Biopsy showed no significant abnormalities in the entire colon. Given that she was in clinical remission and no abnormalities colonoscopy her medication was not restarted. However most recent colonoscopy from 05/2023 showed inflamed rectum and some in the descending colon as well. Normal TI, some inflammation around appendix and cecum. Cecum bx showed moderate to severe chronic inflammation with cryptitis, crypt distortion, crypt abscess as well as focal granulomas. Rectosigmoid biopsies showed moderately active chronic inflammation, normal sigmoid biopsy, mildly active chronic inflammation in the descending transverse and ascending colon. Patient was started on Humira 05/2023 with good response having regular formed stools, no hematochezia or abdominal pain. CT A/P with contrast from 07/2023 showed prominent ileocolic lymph nodes with no signs of colon inflammation. Labs reviewed from 05/2024 that showed normal CBC, CMP Normal TB and hepatitis screening 05/2023 No NSAID use No known family history of colon cancer, liver disease, inflammatory bowel disease, or other GI pathologies Quit smoking 16 years ago, no ETOH or illicit drug use Plan I am actually more concerned about her having colonic Crohn's disease given the granulomas noted in her cecal biopsy, either way, she appears to be in clinical remission with Humira Will check ESR, CRP, fecal calprotectin, TB and hepatitis B screening Schedule colonoscopy with biopsies to check for remission Continue Humira every 2 weeks Discuss health maintenance at next visit Encounters Date Type Department Care Team Description 07/16/2025 Documentation [facility] [address] [place] [address] Keenan Blackburn [facility] from Last 3 Months Surgical History Surgery Date Site/Laterality Comments COLONOSCOPY 05/12/2023 - 06/11/2023 Medical History Medical History Date Comments Ulcerative colitis Smoking quit 2007 Family History Medical History Relation Name Comments Breast cancer Father's Sister great aunt Ovarian cancer Neg Hx Thyroid cancer Neg Hx Relation Name Status Comments Father's Sister great aunt Social History Tobacco Use Types Packs/Day Years Used Date Smoking Tobacco: Never Tobacco Cessation:Counseling Given: Not Answered AUDIT-C Answer Date Recorded Q1: How often do you have a drink containing alc ohol? Never 2025 Average Number of Drinks Not on file 025 Frequency of Binge Drinking Not on file 03/12 Personal Safety Answer Date Recorded Have you ever been in or are you currently in a harmful physical or emotional relationship or is someone making you feel afraid or unsafe? Denies 08/01/2024 Comments Unknown Sex and Gender Information Value Date Recorded Sex Assigned at Not on file Legal Sex Female 1:14 AM SAFETY ADMINISTRATOR Gender Identity Not on file Sexual Orientation Not on file Obstetrics History Para Term AB IAB SAB Ectopic Multiple Livin g Live Births 3 2 2 Date Outcome GA Total Labor Labor/2nd/3rd Weight Sex Type Anes PTL Halima A1 A5 Name Clin Term Term Last Filed Vital Signs Vital Sign Reading Time Taken Comments Blood Pressure 135/83 2025 8:48 AM CDT Pulse 60 2025 8:48 AM CDT Temperature 36.9 C (98.5 F) 08/01/2024 9:06 AM CDT Respiratory Rate 18 08/01/2024 9:06 AM CDT Oxygen Saturation 98% 2025 8:48 AM CDT Inhaled Oxygen Concentration - - Weight 89.4 kg (197 lb 1.6 oz) 2025 8:48 A M CDT Height 160 cm (5' 3) 2025 8:48 AM CDT Body Mass Index 34.91 2025 8:48 AM CDT Plan of Treatment Health Maintenance Due Date Last Done Comments Cervical Cancer Screening 1970 Depression Screening 1970 Hepatitis C Screening 1970 Regular Well Visit/Exam 18-64 1988 Zoster Vaccine (1 of 2) 2020 Influenza Vaccine (#1) 2025 12/16/2024, 2017 Breast Cancer Screening-Mammogram 09/24/2025 09/24/2024, 08/27/2023, 08/27/2023, Additional history exists DTaP/Tdap/Td Vaccine (2 - Td or Tdap) 08/30/2030 08/30/2020 Colon Cancer Screening-Colonoscopy 08/01/2034 08/01/2024 Hepatitis B Screening Completed 01/23/2024 , 07/26/2023, 06/14/2023 Pneumococcal vaccine <65 Aged Out No longer eligible based on patient's age to complete this topic Procedures Procedure Name Priority Date/Time Associated Diagnosis Comments SCREENING MAMMOGRAM BILATERAL W ILIR Schedule Routine, Read Routine (OP Routine) 09/24/2024 8:43 AM SAFETY ADMINISTRATOR Screening mammogram, encounter for COLONOSCOPY 08/01/2024 7:12 AM CDT from Last 3 Months or Most Recently Relevant to Health Maintenance Results * Screening Mammogram Bilateral W Ilir (09/24/2024 8:43 AM SAFETY ADMINISTRATOR) Anatomical Region Laterality Modality Breast Bilateral Mammography 09/24/2024 5:50 PM SAFETY ADMINISTRATOR Impressions 09/24/2024 5:50 PM SAFETY ADMINISTRATOR There is no mammographic evidence to suggest malignancy. The patient may continue screening mammography as per ACR guidelines. FINAL ASSESSMENT: BI-RADS Category 1: Negative. Electronically signed by: Oralia Cross M.D. Narrative 09/24/2024 5:50 PM SAFETY ADMINISTRATOR EXAMINATION: BILATERAL SCREENING MAMMOGRAM WITH TOMOGRAPHY HISTORY: Screening COMPARISON(S): 08/27/2023, 09/14/2022, and 08/11/2022. TECHNIQUE: Full-field 2D images and digital breast tomosynthesis were obtained. CAD was utilized. BREAST PARENCHYMAL COMPOSITION: There are scattered areas of fibroglandular density. FINDINGS: There are no suspicious masses. No suspicious calcifications are seen. There is no unexplained architectural distortion. There is no skin thickening seen. There are no mammographically abnormal lymph nodes seen in the axillae or elsewhere. us Self Screening Mammogram IMG MAMMO PROCEDURES Fi nal Result * Colonoscopy (08/01/2024 7:12 AM CDT) Anatomical Region Laterality Modality Other Narrative Procedure Note Beryl Adorno MD - 08/01/2024 7:12 AM CDT [facility] Patient Name: Lisa Rivera Procedure Date: 08/01/2024 7:12 AM Date of : 1970 Admit Type: Outpatient Age: 54 Gender: Female Attending MD: Beryl Adorno M.D. Room: [facility] ENDOSCOPY ROOM 3 Note Status: Finalized Patient Profile: This is a 54 year old female with h/o NATAN, obesity, anxiety, depression, HTN, hypothyroidism here for surveillance of ulcerative pancolitis vs colonic Crohn's disease. Colonoscopy from 05/2023 showed inflamed rectum and descending colon. Normal TI.Cecum bx showed moderate to severe chronic inflammationwith cryptitis, crypt distortion, crypt abscess as wellas focal granulomas. Rectosigmoid biopsies showed moderately active chronic inflammation, normalsigmoid biopsy, mildly active chronic inflammation in the descending transverse and ascending colon. Patientwas started on Humira 05/2023 with good response having regular formed stools, no hematochezia or abdominal pain. CT A/P with contrast from 07/2023 showed prominent ileocolic lymph nodes with no signs ofcolon inflammation. No follow up colonoscopy sincestarting Humira. Procedure: Colonoscopy Indications: Last colonoscopy: May 2023, Assess therapeutic response to therapy of Crohn's disease of [facility] Referring MD: RAMYA LockhartC Providers: Beryl Adorno M.D. Impression: - Hemorrhoids found on perianal exam. - The examined portion of the ileum was normal. - Mildly erythematous mucosa in the rectum, in the transverse colon and in the cecum. Biopsied. - Petechia(e) and moderately erythematous mucosa in the distal rectum. Biopsied. - External and internal hemorrhoids. - Diverticulosis in the sigmoid colon. Recommendation: - Patient has a contact number available for emergencies. The signs and symptoms of potential delayed complications were discussed with thepatient. Return to normal activities tomorrow. Written discharge instructions were provided to thepatient. - Discharge patient to home (with escort). - Resume previous diet. - Continue present medications. - Await pathology results. - Repeat colonoscopy for surveillance based on pathology results. - Return to GI clinic as previously scheduled. Medicines: Monitored Anesthesia Care Complications: No immediate complications. Estimated Blood Loss: Estimated blood loss was minimal. Procedure: Pre-Anesthesia Assessment: - Prior to the procedure, a History and Physicalwas performed, and patient medications and allergieswere reviewed. The patient is competent. The risks and benefits of the procedure and the sedation optionsand risks were discussed with the patient. Allquestions were answered and informed consent was obtained. Patient identification and proposed procedure were verified by the physician, the anesthesiologist and the r and d lab technician in the endoscopy suite. MentalStatus Examination: normal. Prophylactic Antibiotics: The patient does not require prophylactic antibiotics. Prior Anticoagulants: The patient has taken no anticoagulant or antiplatelet agents. Afterreviewing the risks and benefits, the patient was deemed in satisfactory condition to undergo the procedure.The anesthesia plan was to use monitored anesthesiacare (MAC). Immediately prior to administration of medications, the patient was re-assessed foradequacy to receive sedatives. The heart rate, respiratory rate, oxygen saturations, blood pressure, adequacyof pulmonary ventilation, and response to care were monitored throughout the procedure. The physical status of the patient was re-assessed after the procedure. The benefits, risks and alternatives of theprocedure and sedation were discussed and informed consentwas obtained. All questions were answered. Please referto the signed informed consent document in the medical record. The bowel preparation used was Miralax via split dose instruction. The bowel preparation usedwas bisacodyl tablets via split dose instruction. The scope was passed under direct vision. The Pediatric Colonoscope PCF-H190L [id number] was introducedthrough the anus and advanced to the the terminal ileum.The colonoscopy was performed without difficulty. The patient tolerated the procedure well. The qualityof the bowel preparation was excellent. Bowel prep was administered using a split dose. Findings: Hemorrhoids were found on perianal exam. The terminal ileum appeared normal. A patchy area of mild to minimally erythematous mucosa was found inthe descending, transverse colon and in the cecum. This was biopsied witha cold forceps for histology. Multiple petechiae lesions with erythematous mucosa were found in the distal rectum. This was biopsied with a cold forceps for histology. External and internal hemorrhoids were found during retroflexion. The hemorrhoids were large. A few small-mouthed diverticula were found in the sigmoid colon. Beryl Adorno M.D. 08/01/2024 8:39:17 AM Number of Addenda: 0 Note Initiated On: 08/01/2024 7:12 AM Procedure Code(s): --- Professional --- 31876, Colonoscopy, flexible; with biopsy, single or multiple --- Technical --- 67566, Colonoscopy, flexible; with biopsy, single or multiple Diagnosis Code(s): --- Professional --- K64.8, Other hemorrhoids K62.89, Other specified diseases of anus and rectum K63.89, Other specified diseases of intestine K50.10, Crohn's disease of large intestine without complications K57.30, Diverticulosis of large intestine without perforation orabscess without bleeding --- Technical --- K64.8, Other hemorrhoids K62.89, Other specified diseases of anus and rectum K63.89, Other specified diseases of intestine K50.10, Crohn's disease of large intestine without complications K57.30, Diverticulosis of large intestine without perforation orabscess without bleeding CPT copyright 2020 [employer]. All rights reserved. The codes documented in this report are preliminary and upon professional fee coder reviewmay be revised to meet current compliance requirements. Recognized by the [employer] for promoting quality in endoscopy Beryl Adorno MD ENDOSCOPY PROCEDURES Final Resul t from Last 3 Months or Most Recently Relevant to Health Maintenance Insurance [facility] Advance Directives For more information, please contact: [phone] * Full Code (Latest Code Status on File) Date Activated Date Inactivated Comments 08/01/2024 7:16 AM 08/01/2024 1:41 PM * Full Code Date Activated Date Inactivated Comments 08/01/2024 7:16 AM 08/01/2024 7:16 AM Care Teams Newspaper Delivery Counselor Relationship Specialty Start Date End Date Gian Shafer PA [address] [place] [address] PCP - General Family Practice 03/30/21
--- OUTSIDE RECORDS SUMMARY | 2025-10-10 14:13 | XMS_ITS | Encounter Summary ---
Author Organization [facility] Address [address] [place] [address] Phone Care Team Providers Care Hospital Sales Representative Name Role Phone Milton Ojeda MD Unavailable Unavaila Sonu Wolff DO Unavailable [phone] Gian Shafer Primary Care Provider Cris Em MD Unavailable [phone] Katherine Bradford APRN, CNP Unavailable [phone] Reason for Visit * Reason Comments Medication Refill Encounter Details Date Type Department Care Team (Late st Contact Info) Description 03/13/2022 Refill [facility] - G[facility]enterology - [place] [address] [place] [address] Meron Webb So, PAC [address] [place] [address] Medication Refill Social History Tobacco Use Types [...] 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 No / Unsure 02/21/2022 1:55 PM CDT documented as of this encounter Miscellaneous Notes * Telephone Encounter - Polly Chaudhry RN - 03/15/2022 8:55 AM CDT Pharmacy requesting refill of: Requested Prescriptions Pending Prescriptions Disp Refills ??? azaTHIOprine (IMURAN) 50 MG Tablet [Pharmacy Med Name: AZATHIOPRINE 50 MG TABLET] 120 Tablet 1 Sig: TAKE 4 TABLETS BY MOUTH EVERY DAY Last fill: 12/19/2021 Patients last OV with GI: 05/30/2021 Next Office Visit with GI: 04/06/[address] Em Medication failed protocol, routing to provider azathioprine, order pended. Please review. documented in this encounter Plan of Treatment Upcoming Encounters Date Type Department Care Team (Late st Contact Info) Description 10/12/2025 10:30 AM BLAST FURNACE HELPER Office Visit [facility] - Cardiology [facility] [address] [place] [address] Tati Stein APRN, DISTRIBUTION LINEMAN [address] [place] [address] documented as of this encounter Visit Diagnoses Not on filedocumented in this encounter Additional Health Concerns Infection Onset Date Last Indicated Resolved Time C. difficile Rule-Out 04/12/2023 04/17/20232022 2:36 PM CDT documented as of this encounter Care Teams Hospital Sales Representative Relationship Specialty Start Date End Date Gian Shafer PAC [address] [place] [address] PCP - General Physician Parking Supervisor 07/14/16 Milton Ojeda MD Consulting Physician Otolaryngology 12/08/15 10/19/24 Sonu Gutierrez DO Consulting Physician Gastroenterology 12/08/15 10/19/24 Cris Em MD [address] [place] [address] Consulting Physician Gastroenterology 04/12/23 Katherine Bradford APRN, DISTRIBUTION LINEMAN [address] [facility] [address] [place] [address] Nurse Practitioner Cardiology 06/17/24 06/04/25 documented as of this encounter
--- OUTSIDE RECORDS SUMMARY | 2025-10-10 14:13 | XMS_ITS | Encounter Summary ---
Author Organization [facility] Address [address] [place] [id number] Care Team Providers Care Rodeo Performer Name Role Phone Gian Shafer Primary Care Provider [phone] Encounter Details Date Type Department Care Team (Late st Contact Info) Description 04/19/2019 Abstract [facility] [address] [place] [address] , Generic Conversion, Social History Tobacco Use Types Packs/Day Years Used Date Smoking Tobacco: Never Assessed Comments Unknown Sex and Gender Information Value Date Recorded Sex Assigned at Not on file Legal Sex Female 5:52 PM AIRCRAFT MAINTENANCE ENGINEER Gender Identity Not on file Sexual Orientation Not on file documented as of this encounter Plan of Treatment Not on file documented as of this encounter Visit Diagnoses Not on filedocumented in this encounter Care Teams Rodeo Performer Relationship Specialty Start Date End Date Gian Shafer PA PCP - General PHYSICIAN BRONC BUSTER 05/24/23 documented as of this encounter
--- OUTSIDE RECORDS SUMMARY | 2025-10-10 14:13 | XMS_ITS | Encounter Summary ---
Author Organization [facility] Address [address] [place] [address] Phone Care Team Providers Care Card Boxer Name Role Phone Milton Ojeda MD Unavailable Unavaila Sonu Wolff DO Unavailable [phone] Gian Shafer Primary Care Provider Cris Em MD Unavailable [phone] Katherine Bradford APRN, CNP Unavailable [phone] Reason for Visit * Reason Comments Medication Refill Encounter Details Date Type Department Care Team (Late st Contact Info) Description 02/16/2021 Refill [facility] - [facility]enterology - [place] [address] [place] [address] Meron Webb So, PAC [address] [place] [address] Medication Refill Social History Tobacco Use Types [...] 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 Not on file Not on file documented as of this encounter Miscellaneous Notes * Telephone Encounter - Aicha Lainez RMA - 02/17/2021 9:27 AM CDT Pt is requesting rx refill: Last appt: 11/30/20 Last filled: 01/17/21 Next appt: None Medication pended documented in this encounter Plan of Treatment Upcoming Encounters Date Type Department Care Team (Late st Contact Info) Description 10/12/2025 10:30 AM DIE TRY OUT WORKER STAMPING Office Visit [facility] - Cardiology [facility] [address] [place] [address] Tati Stein APRN, RETAIL LOSS PREVENTION OFFICER [address] [place] [id number] documented as of this encounter Visit Diagnoses Not on filedocumented in this encounter Additional Health Concerns Infection Onset Date Last Indicated Resolved Time C. difficile Rule-Out 04/12/2023 04/17/20232022 2:36 PM CDT documented as of this encounter Care Teams Card Boxer Relationship Specialty Start Date End Date Gian Shafer PAC [address] [place] [address] PCP - General Physician University Manager 07/14/16 Milton Ojeda MD Consulting Physician Otolaryngology 12/08/15 10/19/24 Sonu Gutierrez DO Consulting Physician Gastroenterology 12/08/15 10/19/24 Cris Em MD [address] [place] [address] Consulting Physician Gastroenterology 04/12/23 Katherine Bradford APRN, RETAIL LOSS PREVENTION OFFICER [address] [facility] [place] [address] Nurse Practitioner Cardiology 06/17/24 06/04/25 documented as of this encounter
--- OUTSIDE RECORDS SUMMARY | 2025-10-10 14:13 | XMS_ITS | Encounter Summary ---
Author Organization [facility] Health Address [address] [place] [address] Care Team Providers Care Excavator Backhoe Operator Name Role Phone Unavailable Primary Care Provider Unavailabl e Encounter Details Date Type Department Care Team (Late st Contact Info) Description 03/27/2020 Lab Requisition [facility]BIOLOGY [address] [place] [address] Omar Ashley MD Cough Social History Tobacco Use Types Packs/Day Years Used Date Smoking Tobacco: Never Assessed Comments Unknown Sex and Gender Information Value Date Recorded Sex Assigned at Not on file Legal Sex Female 7:51 AM CDT Gender Identity Not on file Sexual Orientation Not on file documented as of this encounter Plan of Treatment Not on file documented as of this encounter Procedures Procedure Name Priority Date/Time Associated Diagnosis Comments SARS-COV-2 (COVID-19) IN HOUSE Routine 03/27/2020 12:45 PM CDT Cough documented in this encounter Results * SARS-COV-2 (COVID-19) IN HOUSE (03/27/2020 12:45 PM CDT) COVID-19 PCR Not detected Not detected, Invalid 03/28/2020 3:15 PM CDT [facility] Microbiology SPECIMEN FROM NASOPHARYNGEAL STRUCTURE / Unknown Collection / Unknown 03/27/2020 12:45 PM CDT 03/27/2020 10:12 PM CDT Narrative [facility] - 03/28/2020 3:15 PM CDT This Real Time RT-PCR assay was developed and its performance characteristics determined by [facility]. This test has been authorized by the Food and Drug administration (FDA)under an Emergency Use Authorization (EUA). This test has been validated in accordance with the FDA's guidance document Policy for Diagnostic Testing in Laboratories Certified to perform High Complexity Testing under CLIA prior to Emergency Use Authorization for Coronavirus Disease-2019 during the Public Health Emergency issued on January 10, 2020. FDA independent review of this validation is pending. This test is only authorized for the duration of time the declaration that circumstances exist justifying the authorization of emergency use of in vitro diagnostic tests for detection of SARS-CoV-2 virus and/or diagnosis of COVID-19 infection under section 564(b)(1) of the Act, 21 U.S.C 360bbb-3 (b)(1), unless the authorization is terminated or revoked sooner. Omar Ashley MD LAB - MICROBIOLOGY ORDERABL ES Final Result [facility] [address] [place] [address], [facility] [phone] documented in this encounter Visit Diagnoses Diagnosis Cough documented in this encounter
--- OUTSIDE RECORDS SUMMARY | 2025-10-10 14:13 | XMS_ITS ---
Author Organization Unknown Address [address] [place] [address] [phone] Phone Care Team Providers Care Visually Impaired Teacher Name Role Phone ELIZABETH GRANT Attending Unavailable SHERLEY MUNOZ Primary Unavailable Immunization [...] C VX Pneumococcal conjugate PCV20 , polysaccharide UVV304 conjugate, adjuvant, PF 12/16/2024 Completed 216 CVX Social History Type Status Start Date End Date Code Code Syst em Smoking History Never smoker (Never Smoked) [id number] SNOMED CT Sex Female Hospital Discharge Instructions Should you have any questions prior to discharge, please contact a member of your healthcare team. If you have left the hospital and have any questions, please contact your primary care physician. Reason For Referral No Data Found Plan of Treatment No Data Found Encounters Encounter Diagnosis Start Date Code Code Sys tem Unspecified contact dermatitis, unspecified cause 01/11 SNOMED-CT Personal Care Team Section
--- OUTSIDE RECORDS SUMMARY | 2025-10-10 14:13 | XMS_ITS | Data Portability ---
Author Organization [facility] Address [address] [facility] [address] Care Team Providers Care Rehab Assistant Name Role Phone ALEXANDER SHAFER Primary Care Provider JOE HARKINS Glass Frame Fitter Assessment No assessment recorded. Plan of Treatment Reminders Order Date Submit Date Provider Last Modified By Organization Details Last Modified Time Details Appointments None recorded. Lab influenza virus A + B + SARS-CoV- 2 (COVID19) Ag panel, rapid IA, upper respirato ry specimen 2024 025 [facility] In-Office Order, Internal Use Only DO Not Attach Compendium DO Not Attach Compendium, Do Not Delete/merge, [id number] 14:40:12 Referral dermatolo gist referral [address] [facility] ([facility]), [address], [facility] [address], [place], [address], 5 09:23:55 Procedures None recorded. Surgeries None recorded. Imaging LDCT, chest, for lung cancer screening - first LDCT chest with Lung-RADS 2; recommend ed 12 month follow up 2024 025 val Dennis Scheduling, [address] [place], [address], 5 09:55:21 [facility] [address] [facility] [place], [address], 4 09:20:08 Medication Orders Medrol (Lasha) 4 mg tablets in a dose pack 2024 025 [facility], [address], [place], [address], 5 14:41:29 azithromy naif 500 mg tablet 2024 025 [facility], [address], [place], [address], 5 14:41:30 estradiol 10 mcg vaginal tablet 2024 025 [facility], [address], [place], [address], 5 17:59:43 silver sulfadiaz ine 1 % topical cream 2024 025 [facility], [address], [place], [address], 5 14:17:33 estradiol 0.01% (0.1 mg/gram) vaginal cream 2024 025 [facility], [address], [place], [address], 5 15:40:21 Patient TargetsNo targets recorded. 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 S eborrheic keratosis Referring Physician: Alexander Shafer, Family Medicine, Encounter Date: 10/07/2024 Results Created Date Observation Date Name Description Value Unit Range Abnormal Flag Note LastModifiedBy Organization Detail LastModifiedTime 02/26/20 25 02/25/2025 influ roxie virus A + B + SARS- CoV-2 (COVI D19) Ag panel , rapid IA, upper respi rator y speci men Flu A negati ve Not Available In-Office Order Internal Use Only DO Not Attach Compendium DO Not Attach Compendium, Do Not Delete/merge, [id number] 02/25/2025 14:27:07 02/26/20 25 02/25/2025 influ roxie virus A + B + SARS- CoV-2 (COVI D19) Ag panel , rapid IA, upper respi rator y speci men Flu B negati ve Not Available In-Office Order Internal Use Only DO Not Attach Compendium DO Not Attach Compendium, Do Not Delete/merge, [id number] 02/25/2025 14:27:07 02/26/20 25 02/25/2025 influ roxie virus A + B + SARS- CoV-2 (COVI D19) Ag panel , rapid IA, upper respi rator y speci men Rapid SARS CoV 2 Ag, QL IA, respiratory specimen negati ve Not Available In-Office Order Internal Use Only DO Not Attach Compendium DO Not Attach Compendium, Do Not Delete/merge, [id number] 02/25/2025 14:27:07 09/24/20 24 09/24/2024 MAMMO , scree nadege, digit al, bilat eral No observ ation record ed. ANTONIO Vivar [address] , [place], [address], 09/25/2024 20:59:30 01/04/20 25 01/04/2025 XR, ankle No observ ation record ed. [address], [address], 01/05/2025 08:58:30 07/06/20 25 06/22/2025 CT, chest , w/o contr ast No observ ation record ed. [address] [place], [address], 07/14/2025 10:17:23 Result Notes None recorded. Problems Name Problem SNOMED Code Status Onset Date Resolution Date Notes Provider Name and Address Organization Details Recorded Time Gastroesop hageal reflux disease 322436620 Active Not Available [facility] 3 01:25:51 Mass of neck 181762161 Active Not Available [facility] 3 01:25:51 Skin lesion 74025048 Active Not Available [facility] 3 01:25:52 Obese 703270715 Active Not Available [facility] 3 01:25:51 Hyperlipid emia 67136615 Active Not Available [facility] 3 01:25:51 Hypocalcem ia 5964319 Active Not Available [facility] 3 01:25:51 Gastroente ritis 31983925 Active Not Available [facility] 3 01:25:51 Mixed anxiety and depressive disorder 990555479 Completed 06/26/2019 Alexander Shfaer PA-C Attn: Accounting ,[address] [place], [address] , [facility] - [facility]END[facility] 9 15:40:19 Hypertensi ve disorder 12886349 Active Not Available [facility] 3 01:25:51 Essential hypertensi on 44898567 Active Not Available [facility] 3 01:25:52 Menorrhagi a 232487176 Active Not Available [facility] 3 01:25:51 Chronic anxiety 069429354 Active 2018 Not Available [facility] 3 01:25:51 Notes:Blood pressure check Problem Notes None recorded. Procedures Surgical History Date Name Laterality Status Provider Name and Address Organization Details Recorded Time 09/24/20 24 Date of Last Mammogram completed Pat Christine MA [place] - [facility] 12/16/2024 12:00:52 04/27/20 23 Date of Last Pap Smear completed Pat Christine MA [facility] 12/16/2024 12:01:34 05/27/20 19 Colonoscopy completed Rylee Case MA [facility] 05/27/2019 13:43:16 11/27/19 19 colonoscopy completed Rylee Case MA [facility] 11/27/2018 14:58:43 Endometrial Biopsy completed Iona Ford RN [facility] 06/14/2016 16:01:52 Tonsillectomy completed Arleen Levy MA [facility] 03/26/2015 14:09:30 LEEP completed Arleen Levy MA [facility] 03/26/2015 14:09:30 Dilation and Curettage completed Arleen Levy MA [facility] 03/26/2015 14:09:30 Caesarean Section completed Caty Levy MA [facility] 03/26/2015 14:09:30 Imaging Results None recorded. Procedure Notes None recorded. Medical Equipment None Reported. Allergies No known drug allergies Medications Name Sig Start Date Stop Date Status Note LastModified by Organization Details LastModified Time cyclobenz aprine 10 mg tablet TAKE 1 TABLET BY MOUTH 3 TIMES DAILY NEEDED FOR MUSCLE SPASMS FOR UP TO 14 DAYS. 05/19 completed Not Available Not Available Not Available silver sulfadiaz ine 1 % topical cream APPLY A 1/16 INCH (1.5 MM) THICK LAYER TO ENTIRE BURN AREA BY TOPICALR OUTE 2 TIMES PER DAY 02/25 completed Not Available Not Available Not Available prednison e 10 mg tablet 04/08 completed Not Available Not Available Not Available venlafaxi ne ER 75 mg capsule,e xtended release 24 hr TAKE 1 CAPSULE BY MOUTH EVERY DAY 04/27 completed Not Available Not Available Not Available atorvasta tin 20 mg tablet Take 1 tablet(s ) every day by oral route for 90 days. NEEDS APPT BEFORE ANY MORE REFILLS 10/07 completed Not Available Not Available Not Available clindamyc in HCl 300 mg capsule 10/07 completed Not Available Not Available Not Available azithromy naif 250 mg tablet TAKE 2 TABLETS BY MOUTH TODAY, THEN TAKE 1 TABLET DAILY FOR 4 DAYS 05/19 completed Not Available Not Available Not Available ibuprofen 800 mg tablet TAKE 1 TABLET BY MOUTH THREE TIMES A DAY NEEDED FOR PAIN 12/16 completed Not Available Not Available Not Available citalopra m 10 mg tablet TAKE ONE TABLET BY MOUTH DAILY 2014 active Not Available Not Available Not Avai lable hydrocodo ne 5 mg-acetam inophen 325 mg tablet 04/18 completed Not Available Not Available Not Available meloxicam 15 mg tablet Take 1 tablet twice a day by oral route as needed. 12/24 completed Not Available Not Available Not Available lisinopri l 20 mg tablet TAKE 1 TABLET BY MOUTH EVERY DAY 2014 active Not Available Not Available Not Avai lable Medrol (Lasha) 4 mg tablets in a dose pack Take 1 dose pk by oral route as directed . 2024 active Not Available Not Available Not Avai lable prednison e 20 mg tablet TAKE 2 TABLETS BY MOUTH ONCE DAILY FOR 5 DAYS 02/10 completed Not Available Not Available Not Available prednison e 5 mg tablet 05/19 completed Not Available Not Available Not Available sulfasala zine 500 mg tablet,de layed release 04/08 completed Not Available Not Available Not Available metronida zole 500 mg tablet 04/18 completed Not Available Not Available Not Available azathiopr ine 50 mg tablet TAKE 4 TABLETS BY MOUTH EVERY DAY 05/19 completed Not Available Not Available Not Available amlodipin e 5 mg tablet TAKE 1 TABLET BY MOUTH EVERY DAY *PT NEEDS APT FOR MORE REFILLS 05/19 completed Not Available Not Available Not Available ciproflox acin 500 mg tablet Take 1 tablet every 12 hours by oral route for 10 days. 01/31 completed Not Available Not Available Not Available sulfameth oxazole 800 mg-trimet hoprim 160 mg tablet 04/18 completed Not Available Not Available Not Available omeprazol e 40 mg capsule,d elayed release TAKE 1 CAPSULE BY MOUTH EVERY DAY 04/11 completed Not Available Not Available Not Available tramadol 50 mg tablet TAKE 1 TABLET BY MOUTH EVERY 6 HOURS NEEDED 06/09 completed Not Available Not Available Not Available Depo-Medr ol 80 mg/mL suspensio n for injection Take 1 mL by injectio n route. 05/20 completed Not Available Not Available Not Available levothyro xine 25 mcg tablet Take 1 tablet every day by oral route for 90 days. 04/08 completed Not Available Not Available Not Available Guaiatuss in AC 10 mg-100 mg/5 mL oral liquid Take 10 mL every 4 hours by oral route for 10 days. 02/26 completed Not Available Not Available Not Available Microgest in FE 12/01 (28) 1 mg-20 mcg (21)/75 mg (7) tablet active Not Available Not Available Not Available lorazepam 0.5 mg tablet Take 1 tablet 3 times a day by oral route as needed for 30 days. 04/25 completed Not Available Not Available Not Available meclizine 25 mg tablet 05/19 completed Not Available Not Available Not Available benzonata te 100 mg capsule 05/19 completed Not Available Not Available Not Available levothyro xine 50 mcg tablet TAKE 1 TABLET BY MOUTH EVERY DAY 05/19 completed Not Available Not Available Not Available cephalexi n 500 mg capsule TAKE 1 CAPSULE BY MOUTH 4 TIMES DAILY FOR 7 DAYS 02/10 completed Not Available Not Available Not Available ferrous sulfate 325 mg (65 mg iron) tablet 08/30 completed Not Available Not Available Not Available Albenza 200 mg tablet TAKE TWO TABLETS BY MOUTH DAILY 05/28 completed did not have parasite in stool Not Available Not Available Not Available lidocaine HCl 2 % mucosal solution APPLY TO MUCOSAL AREA WITH A COTTON SWAB 3 TIMES A DAY NEEDED FOR PAIN 12/16 completed Not Available Not Available Not Available folic acid 1 mg tablet TAKE 1 TABLET BY MOUTH EVERY DAY 05/19 completed Not Available Not Available Not Available hydrocort isone 2.5 % topical cream APPLY A THIN LAYER TO THE AFFECTED AREA(S) BY TOPICAL ROUTE 2 TIMES PER DAY 08/30 completed Not Available Not Available Not Available hydrochlo rothiazid e 25 mg tablet Take 1 tablet every day by oral route. 2014 active Not Available Not Available Not Avai lable mupirocin 2 % topical ointment APPLY 1MG TOPICALL Y TWICE A DAY 02/10 completed Not Available Not Available Not Available oxycodone -acetamin ophen 7.5 mg-325 mg tablet 04/08 completed Not Available Not Available Not Available estradiol 0.01% (0.1 mg/gram) vaginal cream Insert 2g vaginall y every night for 14 nights, then insert 1g vaginall y three times weekly (M, W, F) for maintena nce dose. 02/06 completed Not Available Not Available Not Available albuterol sulfate HFA 90 mcg/actua tion aerosol inhaler USE 2 PUFFS BY MOUTH FOUR TIMES A DAY NEEDED FOR SHORTNES S OF BREATH OR WHEEZING 05/19 completed not using Not Available Not Available Not Available ondansetr on 4 mg disintegr ating tablet 04/18 completed Not Available Not Available Not Available fluoxetin e 20 mg capsule TAKE 1 CAPSULE BY MOUTH DAILY. 05/19 completed Not Available Not Available Not Available naproxen 500 mg tablet TAKE 1 TABLET BY MOUTH TWICE A DAY NEEDED FOR MILD OR MORE SEVERE PAIN 05/19 completed Not Available Not Available Not Available amoxicill in 875 mg-potass ium clavulana te 125 mg tablet TAKE 1 TABLET BY MOUTH EVERY 12 HOURS FOR 7 DAYS 10/07 completed Not Available Not Available Not Available azithromy naif 500 mg tablet Take 1 tablet every day by oral route for 3 days. 2024 active Not Available Not Available Not Avai lable ezetimibe 10 mg tablet TAKE 1 TABLET BY MOUTH EVERY DAY, NEEDS APPT BEFORE NEXT REFILL 05/19 completed Not Available Not Available Not Available Pepcid AC 20 mg tablet Take 1 tablet every 12 hours by oral route. 12/24 completed Generic Not Available Not Available Not Available Pentasa 500 mg capsule,c ontrolled release TAKE 2 CAPSULES BY MOUTH 4 TIMES A DAY. DO NOT CRUSH. 05/19 completed Not Available Not Available Not Available Bactrim 12/24 completed Not Available Not Available Not Available Quasense 0.15 mg-30 mcg (91) tablets,3 month dose pack 04/11 completed Not Available Not Available Not Available estradiol 10 mcg vaginal tablet active Not Available Not Available Not Available potassium chloride ER 20 mEq tablet,ex tended release TAKE 1 TABLET BY MOUTH TWICE A DAY FOR 3 DAYS 05/19 completed Not Available Not Available Not Available Humira(CF ) Pen 40 mg/0.4 mL subcutane ous kit active Not Available Not Available Not Available Humira(CF ) Pen Crohn's-U lc Colitis-H id Sup Strt 80 mg/0.8 mL subcut kt active Not Available Not Available No t Available Paxlovid 300 mg (150 mg x 2)-100 mg tablets in a dose pack TK 2 NIRMATRE LVIR TS AND 1 RITONAVI R T TOGETHER PO BID FOR 5 DAYS BID FOR 5 DAYS 05/19 completed Not Available Not Available Not Available Quviviq 25 mg tablet Take 1 tablet by oral route at bedtime. 04/27 completed Not Available Not Available Not Available Vitals Date Recorded Body height Body mass index (BMI) Body weight Oxygen saturation Heart rate Body temperature Systolic And Diastolic Provider Name and Address Organization Details Last Updated DateTime 5 161.29 cm 35.8 kg/m2 66097.1 9 g 99 % 69 /min 97.8 [degF] 166/89 mm[Hg] Pat Christine [facility] 5 11:55:01 Date Recorded Body height Body mass index (BMI) Body weight Respiratory rate Oxygen saturation Heart rate Systolic And Diastolic Provider Name and Address Organization Details Last Updated DateTime 5 161.29 cm 35 kg/m2 33503.0 7 g 14 /min 95 % 62 /min 130/86 mm[Hg] Clarita Billingsley MA [facility] 5 15:42:13 Date Recorded Body height Body mass index (BMI) Body weight Oxygen saturation Heart rate Body temperature Systolic And Diastolic Provider Name and Address Organization Details Last Updated DateTime 5 161.29 cm 34.5 kg/m2 09395.6 4 g 97 % 54 /min 97.7 [degF] 159/88 mm[Hg] Pat Christine [facility] 5 09:39:38 Date Recorded Body height Body mass index (BMI) Body weight Oxygen saturation Heart rate Respiratory rate Body temperature Systolic And Diastolic Provider Name and Address Organization Details Last Updated DateTime 5 161.29 cm 34.5 kg/m2 11117.2 9 g 98 % 77 /min 14 /min 98.1 [degF] 131/81 mm[Hg] Clarita Billingsley MA [facility] 5 14:19:14 Date Recorded Body height Body mass index (BMI) Body weight Oxygen saturation Heart rate Systolic And Diastolic Provider Name and Address Organization Details Last Updated DateTime 4 161.29 cm 35.9 kg/m2 42310.0 3 g 98 % 77 /min 118/76 mm[Hg] Miriam Rebolledo MA [facility] 4 18:29:33 Social History Question Answer Notes LastModified by Organization Details LastModified Time Tobacco Smoking Status Former Smoker Quit 8 years ago Iona Ford RN [facility], [facility] 06/14/2016 16:01:52 Are You Blind Or Do You Have Difficulty Seeing? No Information not available 02/09/2021 What Is Your Level Of Caffeine Consumption? Occasional Information not available 02/09/2021 How Much Tobacco Do You Chew? None Information not available 08/30/2020 In The 14 Days Before Symptom Onset, Have You Had Close Contact With A Laboratory-confi rmed COVID-19 While That Case Was Ill? No Information not available 02/09/2021 In The 14 Days Before Symptom Onset, Have You Had Close Contact With A Person Who Is Under Investigation For COVID-19 While That Person Was Ill? No Information not available 02/09/2021 Have You Been To An Area Known To Be High Risk For COVID-19? No Information not available 02/09/2021 Are You Deaf Or Do You Have Serious Difficulty Hearing? No Information not available 02/09/2021 What Type Of Diet Are You Following? REGULAR Intermitting Fasting Information not available 02/09/2021 Which Illicit Or Recreational Drugs Have You Used? Denies [email or web address] Information not available 06/14/2016 Are There Any Guns Present In Your Home? No Information not available 04/25/2021 Marital Status Informati on not available 08/30/2020 What Was The Date Of Your Most Recent Tobacco Screening? 02/25/2025 Information not available 02/25/2025 What Is Your Relationship Status? Information not available 02/09/2021 Do You Use Your Seat Belt Or Car Seat Routinely? Yes Information not available 02/09/2021 Do You Have Smoke And Carbon Monoxide Detectors In Your Home? Yes Information not available 03/25/2021 At What Age Did You Start Smoking Tobacco? 25 [email or web address] Information not available 03/26/2015 Are You Passively Exposed To Smoke? No Information not available 04/25/2021 How Much Tobacco Do You Smoke? No 20 Years Information not available 10/25/2021 General Stress Level Low Information not available 08/30/2020 Has Tobacco Cessation Counseling Been Provided? No [email or web address] Information not available 05/20/2019 On What Date Was Tobacco Cessation Counseling Provided? 02/25/2025 [email or web address] Answered No To The Tobacco Cessation Counseling Provided Question On 05/20/2019. Information not available 02/25/2025 Sex: Female Functional Status Question Answer Note LastModified by Organizat ion Details LastModified Time Do you use any illicit or recreational drugs? No Information not available 02/09/2021 Do you or have you ever used any other forms of tobacco or nicotine? No Information not available 02/09/2021 What is your level of alcohol consumption? None [email or web address] Information not available 06/14/2016 Do you or have you ever used smokeless tobacco? Never used smokeless tobacco [email or web address] Information not available 11/17/2019 Are you currently employed? No Information not available 02/09/2021 Are you able to care for yourself independently? Yes Information not available 02/09/2021 Do you or have you ever used e-cigarettes or vape? Former user of electronic cigarettes quit 2019 Information not available 10/25/2021 What is your exercise level? None [email or web address] Information not available 03/26/2015 Mental Status Question Answer Note LastModified by Organization D etails LastModified Time Do you feel stressed (tense, restless, nervous, or anxious, or unable to sleep at night)? [id number] Information not available 04/25/2021 Family History Relationship Description Onset Age of this Age Resolved Age Notes LastModified by Organization Details LastModified Time Mother Heart disease [email or web address] Not available 01/2016 16:09:34 Mother Hypertensive disorder [email or web address] Not available 01/2016 16:09:34 Mother Hypercholest erolemia [email or web address] Not available 01/2016 16:09:34 Mother Chronic obstructive pulmonary disease [email or web address] Not available 04/27 15:41:21 Father Hypertensive disorder [email or web address] Not available 01/2016 16:09:34 Medical History Condition Response Coronary Artery Disease N Other N Atrial Fibrillation N High Blood Pressure Y Depression N COPD N Blood Clots N Anxiety Disorder N Muscle, Joint, or Bone Problems N Acid Reflux (GERD) Y Cancer N Stroke N ADHD N High Cholesterol N Liver Disease N Headaches N Kidney or Bladder Problems N Thyroid Problems N GI Problems Y Acne Y Have you had a mammogram in the last yea r? Y Skin Problems N Anemia N Heart Attack ([place]) N Diabetes N Seizures/Epilepsy N Asthma N Allergies N Hepatitis N Heart Failure N Osteoporosis N Gynecological History Statement/Question Response Abnormal Pap Y Date of Last Mammogram 09/24/2024 Date of LMP On BCP's at Conception? N STIs/STDs Y Age at Menarche 14 Current Control Method Menopause Age at First Child 23 If Post Menopausal, Age at Menopause 50 Sexually Active? N Menses Monthly N Date of Last Pap Smear 04/27/2023 Sexual Problems? N LMP Approximate Obstetrics History GPAL:G 3 P 2 0 1 2 Type Value Full Term 2 Spontaneous 1 Living 2 Total 3 Immunizations Vaccine Type Date Status Note Provider Nam e and Address Organization Details Recorded Time Tdap 0 completed Esther Jordan MA null, [place] - [facility] 10/10/2024 11:23:30 Hep B, adult 4 completed JOE HARKINS MD Attn: Accounting[address] [place], [address], [place] [facility] 12/16/2024 12:17:53 Hep B, adult 3 completed JOE HARKINS MD Attn: Accounting[address] [place], [address], [place] [facility] 12/16/2024 12:17:53 Hep B, adult 3 completed JOE HARKINS MD Attn: Accounting,[address], [place], [address], [facility] 12/16/2024 12:17:53 Influenza, split virus, quadrivalent, preservative 8 completed Not Available [facility] 11/29/2019 02:36:32 Pneumococcal conjugate PCV20, polysaccharide DAG102 conjugate, adjuvant, PF 5 completed WILL Murray, [place] - [facility] 12/16/2024 12:48:12 Influenza, split virus, trivalent, PF 5 completed WILL [place], [place] - [facility] 12/16/2024 12:49:14 Past Encounters Encounter ID Performer Location Encounter Start Date Encounter Closed Date Diagnosis/Indication Diagnosis SNOMED-CT Code Diagnosis ICD10 Code Diagnosis IMO Codes Diagnosis Note [id number] DEISY Vaughn (Adult Med) [address] [place] [address] 03/26/2015 13:43:32 03/26/2015 14:55:50 Gastroesophageal reflux disease [id number] Patient has tried omeprazole in the past and it works well. Aware that ranitidine recommende d, but patient prefers omeprazole . Discussed diet and lifestyle changes. Mass of neck 215330036 Swe lling base of left neck. Will get Ultrasound for evaluation . Skin lesion 56589034 Sever al dark spots on arms. Needing full eval of skin. Adult heal th examination [id number] Encouraged routine exercise, well balanced diet, and vision/den shashank/head mechanic apts. Obese 147944491 Diet and exercise recommende d. Getting labs as well. [id number] DEISY Vaughn (Adult Med) [address] [place] [address] 05/07/2015 15:27:58 05/07/2015 15:49:53 Gastroenteritis 48332229 Having soft and diarrhea stools for the past 4 days. Hand hygiene. Fluids. BRAT diet and advance in 2 days as tolerated. [id number] DEISY Vaughn (Adult Med) [address] [place] [address] 07/09/2015 15:58:18 07/09/2015 17:12:32 Mixed anxiety and depressive disorder 986333021 Lots of home stressors. Try citalopram 10 mg daily. FU 1 month for eval of treatment. Obese 066687666 Diet and exercise recommende d. Encouraged use of my fitness pal and gym again. Patient to avoid overeating . Perhaps she needs to sleep with others are sleeping and be awake with others awake to avoid eating too much or at inappropri ate times. Avoid eating 2 hours prior to sleep. [id number] ECTOR VaughnPZhang Diane (Adult Med) [address] [place] [address] 09/27/2015 14:17:02 09/28/2015 10:01:44 Hypertensive disorder 05991609 I10 Increase lisinopril from 5 mg bid to 20 mg daily. < 2 gm sodium diet. Call in 1 week with readings. Patient to restart omeprazole and citalopram . Gastroesop hageal reflux disease 923480023 K21.9 Continue omeprazole . Discussed diet and lifestyle changes. Symptoms continue so EGD likely needed. Referring to GI. [id number] DEISY Vaughn (Adult Med) [address] [place] [address] 10/20/2015 10:15:17 10/26/2015 16:34:39 Essential hypertension 95246956 I10 [id number] [facility] [address] [place] [address] 11/16/2015 13:20:08 11/16/2015 16:39:02 Essential hypertension 36282510 I10 Advised patient to keep follow up [id number] Sunni Ceballos [facility] [address] [place] [address] 06/14/2016 15:35:07 06/14/2016 16:19:58 Screening mammography 18809480 Z12.31 Gynecologi c examination 96429036 Z01.419 Menorrhagia 579776545 N9 2.0 [id number] Thomas Tavares MD [facility] [address] [place] [address] 04/11/2017 17:00:50 04/11/2017 17:48:18 Essential hypertension 73844211 I10 [id number] Alexander Shafer PA-C [facility] [address] [place] [address] 11/13/2017 16:15:34 11/13/2017 18:02:19 Atypical chest pain 158432541 R07.89 [id number] Thomas Tavares MD [facility] [address]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
--- OUTSIDE RECORDS SUMMARY | 2025-10-10 14:13 | XMS_ITS | Clinical Summary ---
Author Organization [facility] Address [facility] [place] [address] Care Team Providers Care Certified Adapted Physical Educator Name Role Phone Gian Shafer Primary Care Provider [phone] Allergies No known active allergies Medications adalimumab (HUMIRA) 40 MG/0.8ML injection Inject 0.8 mLs (40 mg total) into the skin every 14 (fourteen) days. Active atorvastatin (LIPITOR) 20 MG tablet Take 1 tablet (20 mg total) by mouth nightly at bedtime. 05/20/2024 Active traMADol (ULTRAM) 50 MG tablet Take 1 tablet (50 mg total) by mouth every 6 (six) hours as needed for Pain. Active Active Problems No known active problems Social History Tobacco Use Types Packs/Day Years Used Date Smoking Tobacco: Former Cigarettes 2007 Smokeless Tobacco: Never Tobacco Cessation:Counseling Given: Not Answered Alcohol Use Standard Drinks/Week Comments Never 0 (1 standard drink = 0.6 oz pur e alcohol) Comments No Sex and Gender Information Value Date Recorded Sex Assigned at Not on file Legal Sex Female 5:52 PM STORAGE MANAGEMENT CONSULTANT Gender Identity Not on file Sexual Orientation Not on file Last Filed Vital Signs Vital Sign Reading Time Taken Comments Blood Pressure 168/76 06/08/2024 2:30 PM CDT Pulse 54 06/08/2024 2:30 PM CDT Temperature 36.4 C (97.6 F) 06/08/2024 11:54 AM CDT Respiratory Rate 13 06/08/2024 2:30 PM CDT Oxygen Saturation 100% 06/08/2024 2:30 PM CDT Inhaled Oxygen Concentration - - Weight 90.4 kg (199 lb 6 oz) 06/08/2024 11:54 AM CDT Height 161.3 cm (5' 3.5) 06/08/2024 11:54 AM CD T Body Mass Index 34.76 06/08/2024 11:54 AM CDT Plan of Treatment Health Maintenance Due Date Last Done Comments Cervical Cancer Screening Pap Smear (Age 30 to 64) Every 3 Years 1970 Colorectal Cancer Screening Colonoscopy (10 Years) 1970 Annual Physical 1973 Cervical Cancer Screening Pap with HPV Testing (Age 30 to 64) Every 5 Years 2000 Cervical Cancer Screening with HPV 2000 Pneumococcal Vaccine: 50+ Years (1 of 1 - PCV) 2020 Zoster Vaccines (1 of 2) 2020 COVID-19 Vaccine (1 - season) 2025 Influenza Adult (#1) 2025 09/19/2018 Mammogram Screening 08/27/2025 08/27/2023, 09/14/2022, 08/11/2022, Additional history exists DTaP, Tdap and Td Vaccines (2 - Td or Tdap) 08/30/2030 08/30/2020 Hepatitis C Completed 05/08/2018 Hepatitis B Vaccines Completed 01/23/2024, 07/26/2023, 06/14/2023 Hepatitis A Vaccines Aged Out No long er eligible based on patient's age to complete this topic Meningococcal B Vaccine Aged Out No l onger eligible based on patient's age to complete this topic Meningococcal Vaccine Aged Out No nisha fina eligible based on patient's age to complete this topic RSV Immunizations Under 20 Months Aged Out No longer eligible based on patient's age to complete this topic [place] [address] [place] [address] MEDICAID Care Teams Certified Adapted Physical Educator Relationship Specialty Start Date End Date Gian Shafer PA PCP - General PHYSICIAN CRYPTOGRAPHIC CLERK 05/24/23
--- NOTE | 2025-10-10 14:16 | ED.UPPEXIN ---
HPI - Extremity Injury (Upper) General Chief Complaint: Extremity Injury, Upper Stated Complaint: fall right elbow pain Source: patient Mode of arrival: ambulatory Limitations: no limitations History of Present Illness HPI narrative: 55 years old white female stepped out of her truck, landed on a patch of snow, lost balance and fell, complaining of right elbow pain posteriorly and right hip pain laterally. She denies other injuries. Related Data Home Medications ?Medication ?Instructions ?Recorded ?Confirmed ?Last Taken ?Type adalimumab 40 mg/0.4 mL mg subcut 07/07/24 Unknown History subcutaneous pen kit (Humira(CF) Pen) atorvastatin 20 mg tablet mg 07/07/24 Unknown History Allergies Allergy/AdvReac Type Severity Reaction Status Date / Time No Known Allergies Allergy Verified 10/10/25 14:19 Review of Systems Review of Systems: All systems reviewed & are unremarkable except as noted in HPI and below PMFSH Past Medical History Medical History Obesity Ulcerative colitis Surgical History Surgical History Delivery by section x2 Family History Family History Mother Hypertension Other Asthma Cerebrovascular accident Family history of elevated blood lipids Social History Social History Smoking status: Former smoker Alcohol intake: never Substance use: never Exam Narrative: General appearance: Well-developed, well-nourished Skin: Normal color Head: Normocephalic, nontraumatic Eyes: Clear conjunctiva ENT: Oropharynx normal, ears normal, nose normal Neck: Supple, nontender Chest and respiratory: Airway patent, no respiratory distress, no accessory muscle use Heart: Regular rate/rhythm Abdomen: Soft, nontender, no organomegaly, quiet bowel sounds Vascular: Normal peripheral pulses, normal capillary refill. Musculoskeletal: Right elbow showed diffuse tenderness posteriorly, no deformity, limited supine a vaughn/pronation and flexion. Slight tenderness right hip laterally, good range of motion, no deformity or bruises Neurologic: Alert and oriented ?3, PRODUCTION OPERATOR is normal as tested, no gross motor deficit Course Vital Signs Vital signs: Vital Signs Temperature 36.4 C L 10/10/25 14:10 Pulse Rate 64 10/10/25 14:10 Respiratory Rate 20 10/10/25 14:10 Blood Pressure 194/96 H 10/10/25 14:10 Pulse Oximetry 100 10/10/25 14:10 Oxygen Delivery Room Air 10/10/25 14:10 Temperature 36.4 C L 10/10/25 14:10 Pulse Rate 64 10/10/25 14:10 Respiratory Rate 20 10/10/25 14:10 Blood Pressure 194/96 H 10/10/25 14:10 Pulse Oximetry 100 10/10/25 14:10 Oxygen Delivery Room Air 10/10/25 14:10 MDM - Extremity Injury (Upper) MDM Narrative Medical decision making narrative: Right elbow and right hip pain after falling on ice Physical examination showing diffuse tenderness of the right elbow posteriorly and right hip laterally without deformity. Differential diagnosis include contusion, sprain, strain, fracture X-ray of right elbow showed no acute osseous abnormality X-ray of the right hip showed no acute osseous abnormality Diagnosis fall with right upper extremity contusion right hip contusion. Discharged on Tylenol, ibuprofen, right upper extremity sling. The pt was discharged to home.the pt,s condition upon discharge was fair,education was provided to the pt in reference to the final impression,discharge study results,treatment,prognosis and need for follow up . Differential Diagnosis Differential diagnosis: Likely fracture of humerus Imaging Data Radiologist's impression: Impressions Elbow X-Ray 10/10/25 14:46 Impression: No acute fracture or malalignment. Hip/Pelvis X-Ray 10/10/25 14:47 Impression: No acute fracture or malalignment. Critical Care Time Critical Care Time Critical Care Time: No Discharge Plan Discharge Clinical Impression: Contusion of elbow, right, Contusion of hip, right Patient Disposition: Home Condition: Stable Instructions: Antibiotic Form, How to Use a Sling (ED), Contusion in Adults (ED), Fall Prevention (ED), Hip Contusion (ED) Additional Instructions: Return if symptoms are worsening , call your family physician for appointment, take Tylenol, ibuprofen as as needed for aches and pain, continue home medications. Ice pack 20 minutes/hour for the next 24 hours Patient Language: Luxembourgish Prescriptions: No Action atorvastatin 20 mg tablet Humira(CF) Pen 40 mg/0.4 mL pen injector kit SUBCUT ibuprofen 800 mg tablet 800 mg PO TID PRN (Reason: pain) Qty: 15 0RF lidocaine HCl [Lidocaine Viscous] 2 % solution 1 applic mucous membrane TID PRN (Reason: pain) Qty: 100 0RF Rx Instructions: apply with cotton swab to site of pain amoxicillin-pot clavulanate 875-125 mg tablet 1 tablet PO Q12H 7 Days Qty: 14 0RF Follow-up/Referrals: Soni,SHERLYN Jama [Primary Care Provider]
[2025-10-10] MEDS: IBUPROFEN 400 MG TABLET 800 MG PO (14:22)
[2025-10-10] MEDS: HYDROcodone/acetaminophen (*CRX) 5-325 MG TABLET 1 TAB PO (14:23)
--- OUTSIDE RECORDS SUMMARY | 2025-10-10 14:39 | XMS_ITS | Encounter Summary ---
Author Organization [facility] Address [address] [place] [address] Phone Care Team Providers Care Assembler For Puller Over Hand Name Role Phone Milton Ojeda MD Unavailable Unavaila Sonu Wolff DO Unavailable [phone] Gian Shafer Primary Care Provider Cris Em MD Unavailable [phone] Katherine Bradford APRN, CNP Unavailable [phone] Reason for Visit * Reason Comments Medication Refill Encounter Details Date Type Department Care Team (Late st Contact Info) Description 05/16/2022 Refill [facility] - Gastroenterology - [place] [address] [place] [address] Meron Webb So, PAC [address] [place] [address] Medication Refill Social History Tobacco Use Types [...] 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 difficile Rule-Out 04/12/2023 04/17/20232022 2:36 PM CDT documented as of this encounter Care Teams Assembler For Puller Over Hand Relationship Specialty Start Date End Date Gian Shafer PAC [address] [place] [address] PCP - General Physician Sales Lead Generator 07/14/16 Milton Ojeda MD Consulting Physician Otolaryngology 12/08/15 10/19/24 Sonu Gutierrez DO Consulting Physician Gastroenterology 12/08/15 10/19/24 Cris Em MD [address] [place] [address] Consulting Physician Gastroenterology 04/12/23 Katherine Bradford APRN, [address] [facility], [facility] [address] [place] [address] Nurse Practitioner Cardiology 06/17/24 06/04/25 documented as of this encounter
--- OUTSIDE RECORDS SUMMARY | 2025-10-10 14:39 | XMS_ITS | Encounter Summary ---
Author Organization [facility] Address [address] [place] [address] Phone Care Team Providers Care Electronics Hardware Design Engineer Name Role Phone Milton Ojeda MD Unavailable Unavaila Sonu Wolff DO Unavailable [phone] Gian Shafer Primary Care Provider Cris Em MD Unavailable [phone] Katherine Bradford APRN, CNP Unavailable [phone] Reason for Visit * Reason Comments Medication Refill Encounter Details Date Type Department Care Team (Late st Contact Info) Description 03/13/2022 Refill [facility] - [place] [address] [place] [address] Meron Webb So, PAC [address] [place] [address] Medication Refill Social History Tobacco Use Types [...] 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 difficile Rule-Out 04/12/2023 04/17/20232022 2:36 PM CDT documented as of this encounter Care Teams Electronics Hardware Design Engineer Relationship Specialty Start Date End Date Gian Shafer PAC [address] [place] [address] PCP - General Physician Promotion Writer 07/14/16 Milton Ojeda MD Consulting Physician Otolaryngology 12/08/15 10/19/24 Sonu Gutierrez DO Consulting Physician Gastroenterology 12/08/15 10/19/24 Cris Em MD [address] [place] [address] Consulting Physician Gastroenterology 04/12/23 Katherine Bradford APRN, PROGRAM SUPPORT ASSISTANT [address]2 [facility] [address] [place] [address] Nurse Practitioner Cardiology 06/17/24 06/04/25 documented as of this encounter
--- OUTSIDE RECORDS SUMMARY | 2025-10-10 14:39 | XMS_ITS | Encounter Summary ---
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
--- OUTSIDE RECORDS SUMMARY | 2025-10-10 14:39 | XMS_ITS | Encounter Summary ---
Author Organization [facility] Address [address] [place] [address] Phone Care Team Providers Care Manager Chemistry Name Role Phone Milton Ojeda MD Unavailable Unavaila Sonu Wolff DO Unavailable [phone] Gian Shafer Primary Care Provider [phone] Cris Em MD Unavailable [phone] Katherine Bradford APRN, CNP Unavailable [phone] Reason for Visit * Reason Comments Medication Refill Encounter Details Date Type Department Care Team (Late st Contact Info) Description 02/16/2021 Refill [facility] - [place] [address] [place] [address] Meron Webb So, PAC [address] [place] [address] Medication Refill Social History Tobacco Use Types [...] 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 difficile Rule-Out 04/12/2023 04/17/20232022 2:36 PM CDT documented as of this encounter Care Teams Manager Chemistry Relationship Specialty Start Date End Date Gian Shafer PAC [address] [place] [address] PCP - General Physician It Software Developer 07/14/16 Milton Ojeda MD Consulting Physician Otolaryngology 12/08/15 10/19/24 Sonu Gutierrez DO Consulting Physician Gastroenterology 12/08/15 10/19/24 Cris Em MD [address] [place] [address] Consulting Physician Gastroenterology 04/12/23 Katherine Bradford APRN, HISTOLOGY TECHNOLOGIST [address] [facility] [place] [address] Nurse Practitioner Cardiology 06/17/24 06/04/25 documented as of this encounter
--- OUTSIDE RECORDS SUMMARY | 2025-10-10 14:39 | XMS_ITS | Clinical Summary ---
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 Not on file Not on file Last Filed Vital Signs Vital Sign Reading Time Taken Comments Blood Pressure 122/88 10/07/2024 12:59 PM PSYCH SOCIAL WORKER Pulse 72 10/07/2024 12:59 PM PSYCH SOCIAL WORKER Temperature 36.4 C (97.5 F) 10/07/2024 12:59 PM PSYCH SOCIAL WORKER Respiratory Rate 16 10/07/2024 12:59 PM PSYCH SOCIAL WORKER Oxygen Saturation 97% 10/07/2024 12:59 PM PSYCH SOCIAL WORKER Inhaled Oxygen Concentration - - Weight 92.5 kg (204 lb) 10/07/2024 12:59 PM PSYCH SOCIAL WORKER Height 161.3 cm (5' 3.5) 10/07/2024 12:59 PM CS T Body Mass Index 35.57 10/07/2024 12:59 PM PSYCH SOCIAL WORKER Plan of Treatment Upcoming Encounters Date Type Department Care Team (Late st Contact Info) Description 10/12/2025 10:30 AM PSYCH SOCIAL WORKER Office Visit [facility] - Cardiology - [place] [address] [place] [address] Tati Stein, PATTERN CLEANER, DISTANCE LEARNING TECHNICIAN [address] [place] [address] Health Maintenance Due Date Last Done Comments [...] exams dated: 08/11/2022, 09/14/2022, 05/20/2021, [facility] BREAST TISSUE:There are scattered fibroglandular densities in [...] exam. Electronically signed by: Naima lopez/reyes:08/27/2023 17:57:05 Short Order Fry Cook(s): RT Jorje(R)(M), [facility] letter sent: Normal Exam Reading location: [facility] BI-RADS: 1 Negative Procedure Note Naima Varela [...] exams dated: 08/11/2022, 09/14/2022, 05/20/2021, and 04/26/2020 [facility]. BREAST TISSUE:There are scattered fibroglandular densities [...] exam. Electronically signed by: Naima lopez/reyes:08/27/2023 17:57:05 Short Order Fry Cook(s): RT Jorje(R)(M), [facility] letter sent: Normal Exam Reading location: [facility] BI-RADS: 1 Negative Julia Meier MD IMG [...] Estuardo Lennon D.O. PS: PS Report ID: [id number] Reading Location: [id number] Procedure Note Estuardo Lennon DO - 05/14/2023 [...] 6:42 AM - Electronically signed by Estuardo Lnenon D.O. PS: TINO Report ID: [id number] Reading Location: [id number] IMPRESSION: Scattered pulmonary nodules with the largest [...] DETECTED NON DETECTED 05/09/2018 12:54 AM CDT [facility] Comment: IGM Antibodies to HAV not detected. Does not exclude early acute or recovered HAV infection. HEP B CORE AB (IGM) NON DETECTED NON DETECTED 05/09/2018 12:54 AM CDT [facility] Comment: IGM anti-HBC not detected. Does not exclude the possibility of exposure to or infection with HBV. HEPATITIS B SURFACE ANTIGEN NON DETECTED NON DETECTED 05/09/2018 12:54 AM CDT [facility] Comment: A nonreactive test result does [...] 0.12 <1 S/CO 05/09/2018 12:54 AM T [facility] Comment: Signal/Cutoff ratio < 0.79 is Nondetected Signal/Cutoff ratio 0.80-0.99 is Grayzone Signal/Cutoff ratio > 0.99 is Detected Supplemental assays are recommended if signal/cutoff ratio is >/=1.00. Signal/cutoff ratio result >/= 5.00 is 97% predictive of positivity for recombinant immunoblot assay (RIBA) and will be reported to the [place] Department of Public Health as required. Blood specimen (specimen) Venipuncture / Unknown 05/08/2018 12:08 PM CDT 05/08/2018 12:17 PM CDT Sonu Gutierrez DO HEMATOLOGY ORDERABLES Final Res ult [facility] [address] [place] [address], from Last 3 Months or Most Recently Relevant to Health Maintenance Insurance MEDICAID [place] Care Teams Bootmaker Hand Relationship Specialty Start Date End Date Gian Shafer, [facility] [address] [place] [address] PCP - General Physician Organizational Effectiveness Director 07/14/16 Cris mE MD [address] [place] [address] Consulting Physician Gastroenterology 04/12/23
--- OUTSIDE RECORDS SUMMARY | 2025-10-10 14:39 | XMS_ITS | Clinical Summary ---
Author Organization [facility] Address [address] [place] [address] Care Team Providers Care Senior Cytogenetics Laboratory Director Name Role Phone Gian Shafer Primary Care Provider [phone] Allergies No known active allergies Medications atorvastatin [...] complication Assessment & Plan (09/23/2024 10:35 PM INSULATION ESTIMATOR): Since last visit underwent colonoscopy 07/2024 that [...] 3 years 3. Annual skin exam by patient care assistant for both melena and nonmelanoma skin cancers. [...] Care Team Description 07/16/2025 Documentation [facility] [address] [place] [address] Keenan Blackburn [facility] from Last 3 Months Surgical History [...] on file Legal Sex Female 1:14 AM INSULATION ESTIMATOR Gender Identity Not on file Sexual Orientation [...] Read Routine (OP Routine) 09/24/2024 8:43 AM INSULATION ESTIMATOR Screening mammogram, encounter for COLONOSCOPY 08/01/2024 7:12 AM CDT from Last 3 Months or Most Recently Relevant to Health Maintenance Results * Screening Mammogram Bilateral W Ilir (09/24/2024 8:43 AM INSULATION ESTIMATOR) Anatomical Region Laterality Modality Breast Bilateral Mammography 09/24/2024 5:50 PM INSULATION ESTIMATOR Impressions 09/24/2024 5:50 PM INSULATION ESTIMATOR There is no mammographic evidence to suggest malignancy. The patient may continue screening mammography as per ACR guidelines. FINAL ASSESSMENT: BI-RADS Category 1: Negative. Electronically signed by: Oralia Cross M.D. Narrative 09/24/2024 5:50 PM INSULATION ESTIMATOR EXAMINATION: BILATERAL SCREENING MAMMOGRAM WITH TOMOGRAPHY HISTORY: [...] Adorno MD - 08/01/2024 7:12 AM CDT [facility] Patient Name: Lisa Rivera Procedure Date: 08/01/2024 7:12 AM Date of : 1970 Admit Type: Outpatient Age: 54 Gender: Female Attending MD: Beryl Adorno M.D. Room: [facility] ENDOSCOPY ROOM 3 Note Status: Finalized Patient [...] response to therapy of Crohn's disease [facility] Referring MD: RAMYA LockhartC Providers: Beryl Adorno [...] by the physician, the anesthesiologist and the equipment service technician in the endoscopy suite. MentalStatus Examination: [...] under direct vision. The Pediatric Colonoscope PCF-[id number] was introducedthrough the anus and advanced to [...] 7:12 AM Procedure Code(s): --- Professional --- 41308, Colonoscopy, flexible; with biopsy, single or multiple --- Technical --- 45269, Colonoscopy, flexible; with biopsy, single or multiple [...] perforation orabscess without bleeding CPT copyright 2020 [employer]. All rights reserved. The codes documented in this report are preliminary and upon nurse practical reviewmay be revised to meet current compliance requirements. Recognized by the [employer] for promoting quality in endoscopy Beryl Adorno MD ENDOSCOPY PROCEDURES Final Resul t from Last 3 Months or Most Recently Relevant to Health Maintenance Insurance [facility] Advance Directives For more information, please contact: [phone] * Full Code (Latest Code Status on File) Date Activated Date Inactivated Comments 08/01/2024 7:16 AM 08/01/2024 1:41 PM * Full Code Date Activated Date Inactivated Comments 08/01/2024 7:16 AM 08/01/2024 7:16 AM Care Teams Senior Cytogenetics Laboratory Director Relationship Specialty Start Date End Date Gian Shafer PA [address] [place] [address] PCP - General Family Practice 03/30/21
--- OUTSIDE RECORDS SUMMARY | 2025-10-10 14:39 | XMS_ITS | Clinical Summary ---
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
--- OUTSIDE RECORDS SUMMARY | 2025-10-10 14:40 | XMS_ITS | Encounter Summary ---
Author Organization [facility] Address [address] [place] [address] Phone Care Team Providers Care Global Human Resources Director Name Role Phone Milton Ojeda MD Unavailable Unavaila Sonu Wolff DO Unavailable [phone] Gian Shafer Primary Care Provider Cris Em MD Unavailable [phone] Katherine Bradford APRN, CNP Unavailable [phone] Encounter Details Date Type Department Care Team (Late st Contact Info) Description 08/12/2022 Transcribe [facility] Ad[facility] [address] [place] [id number] Gian Shafer, PAC [address] [place] [address] Social History Tobacco Use Types Packs/Day Years [...] 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 difficile Rule-Out 04/12/2023 04/17/20232022 2:36 PM CDT documented as of this encounter Care Teams Global Human Resources Director Relationship Specialty Start Date End Date Gian Shafer PAC [address] [place] [address] PCP - General Physician Biological Technician 07/14/16 Milton Ojeda MD Consulting Physician Otolaryngology 12/08/15 10/19/24 Sonu Gutierrez DO Consulting Physician Gastroenterology 12/08/15 10/19/24 Cris Em MD [address] [place] [address] Consulting Physician Gastroenterology 04/12/23 Katherine Bradford APRN, AIR SAMPLER [address] [facility] [place] [address] Nurse Practitioner Cardiology 06/17/24 06/04/25 documented as of this encounter
--- OUTSIDE RECORDS SUMMARY | 2025-10-10 14:40 | XMS_ITS | Encounter Summary ---
Author Organization [facility] Address [address] [place] [address] Care Team Providers Care Manager Stone Name Role Phone Unavailable Primary Care Provider Unavailabl e Encounter Details Date Type Department Care Team (Late st Contact Info) Description 03/27/2020 Lab Requisition [facility] MICROBIOLOGY [address] [place] [address] Omar Ashley MD Cough Social History Tobacco [...] Not detected, Invalid 03/28/2020 3:15 PM CDT [facility] MICROBIOLOGY Microbiology SPECIMEN FROM NASOPHARYNGEAL STRUCTURE / Unknown Collection / Unknown 03/27/2020 12:45 PM CDT 03/27/2020 10:12 PM CDT Narrative [facility]CROBIOLOG[facility] - 03/28/2020 3:15 PM CDT This Real Time RT-PCR assay was developed and its performance characteristics determined by [facility]. This test has been [...] LAB - MICROBIOLOGY ORDERABL ES Final Result [facility] MICROBIOLOGY [address] [place] [address], [facility] [phone] documented in this encounter Visit Diagnoses Diagnosis Cough documented in this encounter
--- OUTSIDE RECORDS SUMMARY | 2025-10-10 14:40 | XMS_ITS | Clinical Summary ---
Author Organization [facility] Address [address] [facility] [place] [address] Care Team Providers Care Client Relationship Manager Name Role Phone Unavailable Primary Care Provider Unavailabl e Source Comments [facility],non-owned Affiliates and Associated Physician Practices is amultiple site organization consisting of ambulatory clinics and hospital sitesin [place], [place], [place]. This disclosure is being madepursuant to the Care Everywhere program and may not contain all information available regarding this patient. Last updated 18.[facility] [employer] Social History Tobacco Use Types Packs/Day Years [...] patient's age to complete this topic Insurance [facility]
== END 2025-10-10 15:10 | disposition home or self-care (01) ==
PROVIDERS: Emergency Provider Emergency Medicine; PCP Physician Assistant
DX: S50.01XA Contusion of right elbow, initial encounter (principal); S70.01XA Contusion of right hip, initial encounter; Z87.891 Personal history of nicotine dependence; W00.0XXA Fall on same level due to ice and snow, initial encounter
CPT/HCPCS: 73080; 73502; 99284; A4565; A9270